=== PATIENT | male | born 1970 | race Caucasian/White ===

== ENCOUNTER 2022-03-25 12:23 | Inpatient (IN) | payer BC, SELFPAY ==
[2022-03-25] VITALS (17 sets, daily range): BP systolic 114–149; BP diastolic 50–101; PULSE 71–101; RESP 15–23; TEMP 36.3–36.8; O2SAT 18–100; BMI 42.2; BMI 42.4
--- NOTE | 2022-03-25 13:20 | CRLHL7_ITS ---
For Patients: As a result of the Cures Act, medical imaging exams and procedure reports are released immediately into your electronic medical record. You may view this report before your referring provider. If you have questions, please contact your health care provider. INDICATION: Rapid heart rate. TECHNIQUE: Chest 2 views. COMPARISON: None. FINDINGS: Lungs: Clear lungs. No consolidation. Pleura: No pleural effusion or pneumothorax. Heart and Mediastinum: The cardiomediastinal silhouette is normal. The vessels are unremarkable. Bones: Unremarkable. IMPRESSION: No acute cardiopulmonary disease. Dictated by Maximo Cheatham MD @ 03/25/2022 1:51:42 PM (Electronically Signed)
[2022-03-25 13:56] LABS: Troponin, Point-of-Care* 1.19 ng/ml (0.01-0.04)
--- NOTE | 2022-03-25 13:57 | ED.NURSE ---
ed trop 1.19, dr. ojeda updated
--- OUTSIDE RECORDS SUMMARY | 2022-03-25 13:59 | XMS_ITS | Clinical Summary ---
:1970 Author Organization [employer] [facility] [place] [address] Care Team Providers Name Role Phone Alejandro Cordova MD Primary Care Provider Allergies Active Allergy Reactions Severity Noted Date Comments Amlodipine Tachycardia Medium 03/18/2022 Cats (Fur, Dander, Saliva) Shortness Of Breath Low 011 Lisinopril Cough 11/05/2012 Metoprolol Other - Describe In Comment Medium 03/18/2022 fatigue Field Medications Medication Sig Dispensed Refills Start End Date Status Date losartan (COZAAR) 100 Take 1 90 Tablet 3 Active mg tabletIndications: Tablet (100 2 Essential mg) by mouth hypertension once daily. famotidine (PEPCID) Take 1 0 Active 20 mg Tablet (20 2 tabletIndications: mg) by mouth Gastroesophageal in the reflux disease, morning and unspecified whether 1 Tablet (20 esophagitis present, mg) in the Esophageal dysphagia evening. chlorthalidone Take 1 30 Tablet 11 Activ e (HYGROTON) 25 mg Tablet (25 2 tabletIndications: mg) by mouth Essential once daily. hypertension terazosin (HYTRIN) 2 Take 1 30 Capsule 5 Active mg Capsule (2 2 capsuleIndications: mg) by mouth Essential every hypertension morning. amLODIPine (NORVASC) Take 1 30 Tablet 5 03/18/20 Discontinued 5 mg Tablet (5 2 22 (Reorder tabletIndications: mg) by mouth (E-cancel not Essential once daily. sent)) hypertension metoprolol succinate Take 1 30 Tablet 5 03/18/20 Discontinued (TOPROL XL) 50 mg Tablet (50 2 22 ( *Allergic/Adver sustained-release mg) by mouth se Rxn/Side tabletIndications: once daily. Effects) Essential hypertension Active Problems Problem Noted Date Morbid obesity with BMI of 40.0-44.9, adult 02/13/2022 Bicuspid aortic valve 12/27/2020 Enlarged thoracic aorta 11/27/2020 Seasonal allergic rhinitis due to pollen 11/27/2020 Gastroesophageal reflux disease 11/27/2020 ALEXANDRO on CPAP 08/21/2020 Essential hypertension 07/13/2019 Bilateral carpal tunnel syndrome 12/02/2017 Flexor tendinitis of both wrists 12/02/2017 Pain in both forearms 11/11/2017 Other mixed anxiety disorders 04/16/2017 Back pain 12/15/2012 Resolved Problems Problem Noted Date Resolved Date Connective tissue disorder 07/13/2019 02/13/2022 Encounters Date Type Specialty Care Team Description 03/25/2022 Nurse Triage Alejandro Cordova Fast Heartbeat (156) MD Ron 03/18/2022 Office Visit Alejandro Cordova Blood Pressure MD Ron 03/18/2022 Travel 02/13/2022 Office Visit Richie Juarse DO Blood Pressure (Follow up on blood pre ssures. Patient brought home machine and all medications.) 02/13/2022 Travel 02/12/2022 Telephone Alejandro Cordova Blood Pressure MD Ron 02/06/2022 Office Visit Alejandro Cordova Blood Pressure MD Ron 02/06/2022 Travel 02/05/2022 Telephone Alejandro Cordova High Blood Pre ssure MD Ron 12/31/2021 Telephone Alejandro Cordova Refill Request (losartan MD Ron & metoprolol bell ccinate) 12/28/2021 Orders Only Jenny Alejandro, Imaging PA 12/27/2021 Office Visit Carlos Elizalde CV Valve Est ([facility] book, MD [facility]ll[facility] imaging, bicusp id aortic valve//PCP: Alejandro Wheeler M D//) 12/27/2021 Hospital Encounter Carlos Elizalde Pr eop examination; MD Mark Anthony Bicuspid aortic valve with ascending aorta 4.0 to 4.5 cm in diameter; Aortic valve in sufficiency, etiology of cardiac valve disease unspecified 12/27/2021 Travel from Last 3 Months Immunizations Name Administration Dates Next Due Tdap 05/08/2012 Family History Medical History Relation Name Comments Heart Disease Father Relation Name Status Comments Brother Alive Father (Age 67) heart Maternal Grandfather Maternal Grandmother Alive Mother Alive Paternal Grandfather Paternal Grandmother Alive Sister Alive Social History Tobacco Use Types Packs/Day Years Used Date Never Smoker Smokeless Tobacco: Never Used Tobacco Cessation: Counseling Given: Yes Alcohol Use Standard Drinks/Week Comments Yes 12 (1 standard drink = 0.6 oz pure alcoh ol) occasional Sex Assigned at Date Recorded Not on file COVID-19 Exposure Response Date Recorded In the last 10 days, have you been in contact with No / Unsu re 03/18/2022 7:50 AM CDT someone who was confirmed or suspected to have Coronavirus/COVID-19? Obstetrics History Last Filed Vital Signs Vital Sign Reading Time Taken Comments Blood Pressure 125/82 03/18/2022 7:59 AM CDT Pulse 96 03/18/2022 7:59 AM CDT Temperature 36.3 ??C (97.3 ??F) 09/25/2020 3:53 PM CDT Respiratory Rate 14 08/21/2018 8:37 AM CDT Oxygen Saturation 98% 03/18/2022 7:59 AM CDT Inhaled Oxygen Concentration - - Weight 145.1 kg (319 lb 14.4 oz) 03/18/2022 7:59 AM CDT Height 185.4 cm (6' 1) 12/27/2021 12:56 PM CDT Body Mass Index 42.21 12/27/2021 12:56 PM CDT Plan of Treatment Upcoming Encounters Date Type Specialty Care Team Description 04/16/2022 Office Visit Alejandro Cordova MD [facility] [address] [place], [place] [address] (Wo rk) Health Maintenance Due Date Last Done Comments COVID-19 vaccine series (#1) 1970 Hepatitis C screening for age 1205/10/1990 18-79 Influenza for age 9-49 02/07/2022 Tetanus booster 05/08/2022 05/08/2012, 05/08/2012 Depression screening for age 12+ 12/05/2022 12/05/2021, 06/2020, 11/02/2020, Additional history exists BMI (ht and wt on same day) for 12/27/2022 12/27/2021, 08/3 , age 18+ 09/25/2020, Additional history exists Lipids for age 45-75 08/21/2025 08/21/2020, 07/13/2019, 03/03/2013, Additional history exists Colonoscopy through age 75 12/31/2025 01/01/2016, 6 Tdap Completed 05/08/2012 Procedures Procedure Name Priority Date/Time Associated Diagnosis Comme nts ECHO COMPLETE WO Routine 12/27/2021 11:39 AM Preop exami nation Results for this CONTRAST CDT Bicuspid aortic procedure ar e in valve with ascending the res ults aorta 4.0 to 4.5 cm section. in diameter Aortic valve insufficiency, etiology of cardiac valve disease unspecified CTA CHEST - DUAL Routine 12/27/2021 8:27 AM Preop examin ation Results for this READ CDT Bicuspid aortic procedure ar e in valve with ascending the res ults aorta 4.0 to 4.5 cm section. in diameter Aortic valve insufficiency, etiology of cardiac valve disease unspecified from Last 3 Months Results ECHO COMPLETE WO CONTRAST (12/27/2021 11:39 AM CDT) P athologist Signature AORTIC VALVE 7 mmHg MEAN PG EJECTION 58 % FRACTION LVEDD 5.4 cm Anatomical Region Laterality Modality HEART Ultrasound Specimen (Source) Anatomical Collection Method Collection Time Re ceived Time Location / / Volume Laterality 12/27/2021 10:37 AM CDT Narrative 12/27/2021 11:52 AM CDT ECHOCARDIOGRAM EVITA [place] TUYET ? Accessi on#: ?? [id number] : ?1970 51 years Study Date: ?? 12/27/2021 10:37:49 AM Gender: M ?BP: ? 151/82 mmHg Height: 185.00 cm ?BSA: ?2.60 m? ?? Weight: 142.00 kg ?Tech: ? JMO/RS ? Referring MD: CARLOS ELIZALDE Site: ? [facility] Reading Location: [facility] Procedure: 2D, Color Doppler and Spectra l Doppler. Indication for study: Bicuspid AV, Ascen ding aorta dilation Cardiac Rhythm: Regular.Study quality: F air. Final Impressions: 1. Normal left ventricular size, mildly increased wall thickness, normal global systolic function, calculated EF of 58 %. 2. The aortic valve is bicuspid, no conner nosis and mild regurgitation. The aortic valve peak velocity is 1.8 m/s, the peak gradient is 12 mmHg, and the mean gradient is 7 mmHg. The aortic valve area is 2 .91 cm? ?? with a dimensionless index of 0.77. The stroke volume index is 43.0 ml/m? ??. 3. 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 Chamber Sizes and Function Normal left ventricular size, mildly inc reased wall thickness, normal global systolic function, calculated EF of 58 %. Left atrial size is normal. Right ventricular cavity size is normal, global systoli c RV function is normal. RV wall thickne ss is normal. The right atrium is normal. Right atrial volume index is 15 ml/m? ??. Right atrial area is 17 cm? ??. The pulmonary artery is of normal size and tomi gin. The sinus of Valsalva is normal siz ed. The ascending aorta is dilated. Valves, RV Pressures and Diastolic Funct ion The aortic valve is bicuspid, no stenosi s and mild regurgitation. The mitral valve is normal in structure, trace mitral regurgitation. Normal diastolic function for age. The tricuspid valve is normal in structure. Tricuspid regurgitation is r egurgitation is not evident. The pulmonic valve is normal. No pulmonary regurgitation. Masses, Effusion, Shunts There is no pericardial effusion. The in ferior vena cava is not well visualized, respiratory size variation not well visualized. No left to right shunting was detected by limited color flow Doppler interrogation of the interatrial septum. MEASUREMENTS AND CALCULATIONS 2-D Measurements and LV Function: LVID (d) 5.4 cm Planimetered EF 58 % LVID (s) 3.2 cm LV FS% (2D) ? 41 % IVS (d) ??1.4 cm LVOT diameter ?? 2.2 cm LVPW (d) 1.1 cm HR ?6 1 bpm Ao Sinus 3.5 cm LA Vol index ?33 ml/ m2 Asc Ao ?? 4.5 cm RA Vol index ?15 ml /m2 LA ? 4.7 cm RA area ? 1 7 cm? ?? Diastology: Mitral ?Tissue Doppler ?Pulmonary veins E Peak 1.0 m/s ??e', Septum ? 0.09 m /s Pulm s ?55.3 cm/s A Peak 0.9 m/s ??e', Lateral ?0.12 m /s Pulm d ?38.1 cm/s E/A ?1.2 ?E/e' Average ?? 9.4 1 ? Pulm s/d ratio ??1.45 DT ? 210 msec Aortic Valve: Vmax ? 1.8 m/s ??FLACO (V) ?? 2.67 cm? ?? VTI ?0.38 m ?? FLACO (I) ?? 2.91 cm? ?? LVOT V max 1.2 m/s ??Max PG ?12 mmHg LVOT VTI ?? 0.29 m ?? Mean PG ?? 7 mmHg SV ? 112 ml ?? Dim Index 0.77 SV index ?? 43 ml/m? ?? CO ?6.8 l/min ?CI ?2.6 l/min/m? ?? Mitral Valve: MVA ?3.6 cm? ?? MV P 1/2 61 msec Tricuspid Valve and estimated PA pressur es: TAPSE 2.2 cm Pulmonic Valve: PV Vmax 0.9 m/s PV AT ?? 100 msec . This study was interpreted by an [facility]. ??Final ?? Procedure Note Chino Wade MD - 12/27/2021Fo rmatting of this note might be different from the original. ECHOCARDIOGRAM EVITA BENZ : 1970 51 years Study Date: 12/27 10:37:49 AM Gender: M BP: 151/82 mmHg Height: 185.00 cm BSA: 2.60 m? ?? Weight: 142.00 kg Tech: RANDAL/RS Referring MD: CARLOS ELIZALDE Site: [facility] Reading Location: [facility] Procedure: 2D, Color Doppler and Spectra l Doppler. Indication for study: Bicuspid AV, Ascen ding aorta dilation Cardiac Rhythm: Regular.Study quality: F air. Final Impressions: 1. Normal left ventricular size, mildly increased wall thickness, normal global systolic function, calculated EF of 58 %. 2. The aortic valve is bicuspid, no conner nosis and mild regurgitation. The aortic valve peak velocity is 1.8 m/s, the peak gradient is 12 mmHg, and the mean gradient is 7 mmHg. The aortic valve area is 2.91 cm? ?? with a dimensionless index of 0.77. The stroke volume index is 43.0 ml/m? ??. 3. 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 Chamber Sizes and Function Normal left ventricular size, mildly inc reased wall thickness, normal global systolic function, calculated EF of 58 %. Left atrial size is normal. Right ventricular cavity size is normal, global systolic RV function is normal. RV wall thickness is normal. The right atrium is normal. Right atrial volume index is 15 ml/m? ??. Right atrial area is 17 cm? ??. The pulmonary artery is of normal size and origin. The sinus of Valsalva is normal sized. The ascending aorta is dilated. Valves, RV Pressures and Diastolic Funct ion The aortic valve is bicuspid, no stenosi s and mild regurgitation. The mitral valve is normal in structure, trace mitral regurgitation. Normal diastolic function for age. The tricuspid valve is normal in structure. Tricuspid regurgitation is regurgitation is not evident. The pulmonic valve is normal. No pulmonary regurgitation. Masses, Effusion, Shunts There is no pericardial effusion. The in ferior vena cava is not well visualized, respiratory size variation not well visualized. No left to right shunting was detected by limited color flow Doppler interrogation of the interatrial septum. MEASUREMENTS AND CALCULATIONS 2-D Measurements and LV Function: LVID (d) 5.4 cm Planimetered EF 58 % LVID (s) 3.2 cm LV FS% (2D) 41 % IVS (d) 1.4 cm LVOT diameter 2.2 cm LVPW (d) 1.1 cm HR 61 bpm Ao Sinus 3.5 cm LA Vol index 33 ml/m2 Asc Ao 4.5 cm RA Vol index 15 ml/m2 LA 4.7 cm RA area 17 cm? ?? Diastology: Mitral Tissue Doppler Pulmonary veins E Peak 1.0 m/s e', Septum 0.09 m/s Pulm s 55.3 cm/s A Peak 0.9 m/s e', Lateral 0.12 m/s Pulm d 38.1 cm/s E/A 1.2 E/e' Average 9.41 Pulm s/d ratio 1.45 DT 210 msec Aortic Valve: Vmax 1.8 m/s FLACO (V) 2.67 cm? ?? VTI 0.38 m FLACO (I) 2.91 cm? ?? LVOT V max 1.2 m/s Max PG 12 mmHg LVOT VTI 0.29 m Mean PG 7 mmHg SV 112 ml Dim Index 0.77 SV index 43 ml/m? ?? CO 6.8 l/min CI 2.6 l/min/m? ?? Mitral Valve: MVA 3.6 cm? ?? MV P 1/2 61 msec Tricuspid Valve and estimated PA pressur es: TAPSE 2.2 cm Pulmonic Valve: PV Vmax 0.9 m/s PV AT 100 msec . This study was interpreted by an [facility]. Final Carlos Elizalde MD ECHO ORD CTA CHEST - DUAL READ (12/27/2021 8:27 AM CDT) Anatomical Region Laterality Modality CHEST Computed Tomography Specimen (Source) Anatomical Location Collection Method / Collectio n Time Received Time / Laterality Volume Impressions 12/28/2021 2:52 PM CDT ?? 1. ??Moderate ascending aortic enlargeme nt 45 x 44 mm. ??Ascending aortic index 8.5 cm2/m. ?A. ??Bicuspid aortic valve with ca lcification and sclerosis. ?B. ??No evidence for coarctation o f the aorta. ?C. ??Normal aortic arch vessel ruby cris. 2. ??Coronary arterial calcification. ?? Please see comments. 3. ??Please see separate radiology repor t for review of noncardiovascular structures. MD NANCY Gaytan/rigo ?? For Patients: As a result of the ntury Cures Act, medical imaging exams and procedure reports are released immediately into your electronic medical record. ??You may view this repo rt before your referring provider. ?? If you have questions, please contact [facility] care provider. OVER-READ ? OVER-READ ? OVER-READ OVER-READ: DETAILED RADIOLOGY EXTRACARDI AC OVER-READ OF CARDIAC CT 12/27/2021 CLINICAL HISTORY: Bicuspid aortic valve. Cardiac over-read . TECHNIQUE: Please refer to separately dictated repo rt for details of technique. ??100 cc Omnipaque 350. This exam is being performed in conjunct ion with the services provided by the [facility]. Heart [place] (I). FINDINGS: Chest: Visualized thyroid is symmetric. No sign ificant axillary, mediastinal, or hilar lymphadenopathy. Main pulmonary ar josefina is normal in caliber. No focal airspace opacities or pleural effu sions. Upper Abdomen: No acute pathology. Musculoskeletal: Visualized osseous structures demonstrat e mild degenerative changes in the spine. IMPRESSION: 1. No acute nonvascular pathology in the chest. 2. Please refer to separately dictated r eport for evaluation of cardiovascular structures. Please note that [facility] use dose modulation, iterative reconstruction, and/or weight- based dosing when appropriate to reduce radiation dose to as low as reaso nably achievable. Dictated by Elmer Cortez MD @ 12/27/2021 3: 49:07 PM Signed by: Elmer Cortez MD @12/27/2021 3:49 :07 PM Narrative 12/28/2021 2:52 PM CDT Results are automatically released to your [employer] account once available, in compliance with matthew al regulations. ??This means that you may see your results before your pro vider has had a chance to review them. ??Please allow 2-3 business days f or your provider to comment on the results. STUDY: ??CTA OF THE CHEST, 12/27/2021 STUDY PARAMETERS: ??Contrast used: Omnip aque 350, 100 cc; no premedications given; scan protocol FLASH; total radiat ion dose 4 mSv; Siemens SOMATOM Force [address] INDICATIONS: ??Aortic insufficiency, bic uspid aortic valve, ascending aortic enlargement. RISK FACTORS: ??Diabetes: ??No. ??Tobacc o use: ??Never. SCAN QUALITY: Good. FINDINGS: ASCENDING AORTA: ??The ascending aorta i s 44 x 45 mm, the maximal dimension in the mid ascending portion. ??The area of 1522 mm2 indexes to 8.5 cm2/m. ADDITIONAL FINDINGS: ??The recent Fall c oronary CTA showed nonobstructive coronary artery disease. Coronary arteri al calcification is again visualized on the scan. ??However, the s can is not intended for coronary artery assessment. ??The aortic valve is anatomically bileaflet with thickening and calcification noted. 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 [id number] 2017-Prese [phone] [address] [place] [address] [employer]UE [employer] BL[employer] OF [id number] 2021-Prese [address] [address] [place] [address] Evita Benz Workers Comp Self 1970 [address] (Home) [place] [id number] BMI [employer] Employer 01/19/[address] (Work) [place] [address] [employer] 06/09/[id number] [place] , ([place]) [place] [address] [employer] 06/09/[address] (Home) [place] [address] Care 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
--- OUTSIDE RECORDS SUMMARY | 2022-03-25 13:59 | XMS_ITS | Encounter Summary ---
:1970 Author Organization [facility] Address [address] [place] [address] Care Team Providers Name Role Phone Unavailable Primary Care Provider Unavailable Reason for Visit Reason Onset Date Comments Testing For Upper Respiratory Virus Symptoms 04/18/2021 Encounter Details Date Type Department Care Team Description 04/18/2021 External Outreach Department of Family Souleymanestanislaw Rj Contact With And (Suspected) Exposure To COVID-19; MedicineSachin D.O. Infection Upper Respiratory [facility], in [address] [place], [place] [address] [facility] [address] [place], [place] [phone] [address] (Work) [phone] Social History Tobacco Use Types Packs/Day Years Used Date Smoking Tobacco: Never Assessed Sex Assigned at Date Recorded Not on file documented as of 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 Progress Notes Shanita Funez - 04/18/2021 1:27 PM CST Encounter created for symptomatic infectious disease screening with possible COVID, Influenza, RSV, and/or Group A Strep testing. LE SCHOOL TECHNOLOGY TEACHER documented in 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 Miscellaneous Notes Result Encounter Note - Suha Tovar R.N. - 04/19/2021 8:47 AM MIDDLE SCHOOL TECHNOLOGY TEACHER The patient will be contacted if they are eligible for Monoclonal Antibody Infusion (MASS 1 or greater) and/or Remote Patient Monitoring (MASS 3 or greater). The [facility] ([facility]) sends general guidance about COVID-19 to all patients by letter or portal, except when a patient is hospitalized or resides in a half-way. [facility] will call all adult patients at highest risk for severe complications of COVID-19 (MASS 3 or greater), those without an online services account, and those who require an stick puller. Any patient with a MASS score 1 or greater or a COVID-19 score 1 or greater may be at higher risk ofsevere disease. These patients will follow up directly with primary care. The primary care team willdecide if the patient needs a phone call or a follow up portal message to assess symptom severity, provide individualized guidance on symptom monitoring or symptom management, or to reinforce when to se ek care. [facility] encourages patients to follow up with their PCP with questions, worsening symptoms, or for symptom management. For questions, contact the [facility] ([facility]): Pager: [phone] In basket: P RST/[facility] COVID-19 POSITIVE Covid Care e-consult Components of the Monoclonal Antibody Selection Score (MASS) Compromised Immune System/Transplant = 4 points Chronic Kidney Disease on Dialysis = 4 points Age greater than or equal to 55 and chronic pulmonary disease = 3 points Age greater than or equal to 65 = 2 points Age greater than or equal to = 2 points Diabetes = 2 points Age greater than or equal to 55 AND cardiovascular disease = 2 points Age greater than or equal to 55 and hypertension = 1 point NOTE: At the time of testing, patients are instructed to obtain the result by calling the [employer] result line or by checking the online services account. LE SCHOOL TECHNOLOGY TEACHER documented in 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 Plan of Treatment Not on filedocumented as of 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 Procedures Procedure Name Priority Date/Time Associated Diagnosis Comme nts INFLUENZA A/B AND Routine 04/18/2021 2:00 PM Infection Upper R esults for this RSV, PCR, VARIES MIDDLE SCHOOL TECHNOLOGY TEACHER Respiratory procedure a re in the results section. SARS CORONAVIRUS-2 Routine 04/18/2021 2:00 PM Contact With And Results for this RNA, V MIDDLE SCHOOL TECHNOLOGY TEACHER (Suspected) Exposure procedu re are in To COVID-19 the results section. documented in 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 Results Influenza A/B and RSV, PCR, Varies (04/18/2021 2:00 PM MIDDLE SCHOOL TECHNOLOGY TEACHER) [facility] Method Time Signature Influenza A/B Swab, 04/19/2021 [facility]TL and RSV, Nasopharynx 3:24 PM MIDDLE SCHOOL TECHNOLOGY TEACHER Source Influenza A, Undetected Undetected 04/19/2021 DTL PCR 3:24 PM MIDDLE SCHOOL TECHNOLOGY TEACHER Comment: Influenza A RNA absent. Influenza B, PCR Undetected Undetected 04/19/2021 3:24 PM CS T DTL Comment: Influenza B RNA absent. Respiratory Syncytial Virus, PCR Undetected Undetected 04/2021 3:24 PM MIDDLE SCHOOL TECHNOLOGY TEACHER DTL Comment: RSV RNA absent. ----ADDITIONAL INFORMATION---- This test has been modified from the man ufacturer's instructions. Its performance characteristics were determi alecia by [facility] in a manner consistent with CLIA requirements. This test has not been cleared or approved by the U.S. Food and Drug Administration . Specimen Anatomical Collection Method Collection Time Receive d Time (Source) Location / / Volume Laterality Varies 04/18/2021 2:00 PM 7:40 (Nasopharynx) MIDDLE SCHOOL TECHNOLOGY TEACHER AM MIDDLE SCHOOL TECHNOLOGY TEACHER Rj Perdomo D.O. LAB MICROBIOLOGY - GENERAL O RDERABLES Performing Organization Address City/State/ZIP Code Phon e Number [facility] - [address] [place], [place] [address] [facility] [place] [address] Laboratories-[facility] [address] (ABNORMAL) SARS Coronavirus-2 RNA, V Symptomatic (04/18/2021 2:00 PM MIDDLE SCHOOL TECHNOLOGY TEACHER) [facility] Method Time Signature SARS-CoV-2 Swab, 04/19/2021 [facility] Specimen Nasopharynx 3:10 AM MIDDLE SCHOOL TECHNOLOGY TEACHER Source SARS CoV-2 Detected (A) Undetected 04/19/2021 [facility]TO RNA, TMA 3:10 AM MIDDLE SCHOOL TECHNOLOGY TEACHER Comment: SARS-CoV-2 RNA present. ----ADDITIONAL INFORMATION---- This molecular amplification test was pe rformed using the Aptima SARS-CoV-2 assay ([employer] on the [employer] tem under emergency use authorization (EUA) by the U.S. Food and Drug Administ ration. Fact sheets for this EUA assay can be fo und at the following links: For Healthcare Providers: https://www.fd a.gov/media/993414/download For Patients: https://www.fda.gov/media/ 027121/download Specimen Anatomical Collection Method Collection Time Receive d Time (Source) Location / / Volume Laterality Varies 04/18/2021 2:00 PM 7:24 (Nasopharynx) MIDDLE SCHOOL TECHNOLOGY TEACHER PM MIDDLE SCHOOL TECHNOLOGY TEACHER Rj Perdomo D.O. LAB MICROBIOLOGY - GENERAL O RDERABLES Performing Organization Address City/State/ZIP Code Phon e Number [facility]- [address] [place] [address] [place] [address] System in [place] [address] [place] [address] documented in 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 Visit Diagnoses Diagnosis Contact With And (Suspected) Exposure To COVID-19 Infection Upper Respiratory documented in 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 Additional Health Concerns Infection Onset Date Last Indicated Resolved Time COVID19 Pending 04/18/2021 04/18/2021 04/19/2021 3:11 AM MIDDLE SCHOOL TECHNOLOGY TEACHER documented as of 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
--- OUTSIDE RECORDS SUMMARY | 2022-03-25 13:59 | XMS_ITS | Clinical Summary ---
:1970 Author Organization [facility] Address [address] [place] [address] Care Team Providers Name Role Phone Unavailable Primary Care Provider Unavailable Source Comments Patient records contain information from all sites at [facility]. For routine questions regarding patient records, call [phone] during business hours, M-F 8:00 AM - 5:00 PM Central Time. Record requests for emergency care only can be directed to [phone] at any time.[facility] Social History Tobacco Use Types Packs/Day Years Used Date Smoking Tobacco: Never Assessed Sex Assigned at Date Recorded Not on file Plan of Treatment Health Maintenance Due Date Last Done Comments CT Colonography 1970 Cologuard 1970 Colonoscopy 1970 Colorectal Cancer Screening 1970 FIT 1970 HIV Screening 1970 Hepatitis B Vaccines (1 of 3 1972 - 3-dose series) Hepatitis C Screening 1970 COVID-19 Vaccine (#1) 1970 Depression Screening (Annual 06/09/2021 PHQ-2) Influenza Vaccine (#1) 2022 DTaP,Tdap,and Td Vaccines (2 05/08/2022 05/08/2012 - Td or Tdap) Fasting Glucose for Diabetes 02/06/2024 02/05/2021, Screening 07/13/2019 Lipid (Cholesterol) Screening 08/21/2025 08/21/2020, 07/13/2019 Pneumococcal vaccine (0-64 Aged Out No lo nger eligible based years) on patient's age to complete this to [facility] Insurance Payer Benefit Plan / Subscriber ID Effective Dates Phone Addre ss Type Group [place] [id number]-Gavi [phone] [address] [facility] [address] [place] [address]
--- OUTSIDE RECORDS SUMMARY | 2022-03-25 13:59 | XMS_ITS | Encounter Summary ---
:1970 Author Organization [facility] Address [address] [place] [address] Care Team Providers Name Role Phone Unavailable Primary Care Provider Unavailable Encounter Details Date Type Department Care Team Description 02/03/2017 Hospital Encounter HX [facility] OCCUP MED García Sellers M.D. [address] [address] (Wo rk) Social History Tobacco Use Types Packs/Day Years Used Date Smoking Tobacco: Never Assessed Sex Assigned at Date Recorded Not on file documented as of 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 Plan of Treatment Not on filedocumented as of 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 Visit Diagnoses Not on filedocumented in 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
--- OUTSIDE RECORDS SUMMARY | 2022-03-25 13:59 | XMS_ITS | Encounter Summary ---
:1970 Author Organization [facility] Address [address] [place] [address] Care Team Providers Name Role Phone Unavailable Primary Care Provider Unavailable Encounter Details Date Type Department Care Team Description 04/18/2021 Admin Visit Department of Family Medicine, [address] [address] [facility] [phone] Social History Tobacco Use Types Packs/Day Years Used Date Smoking Tobacco: Never Assessed Sex Assigned at Date Recorded Not on file documented as of 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 Plan of Treatment Not on filedocumented as of 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 Visit Diagnoses Not on filedocumented in 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 Additional Health Concerns Infection Onset Date Last Indicated Resolved Time COVID19 Pending 04/18/2021 04/18/2021 04/19/2021 3:11 AM GLOVE MACHINE OPERATOR documented as of 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
--- OUTSIDE RECORDS SUMMARY | 2022-03-25 13:59 | XMS_ITS | Encounter Summary ---
:1970 Author Organization [facility] Address [address] [place] [address] Care Team Providers Name Role Phone Unavailable Primary Care Provider Unavailable Reason for Visit Reason Comments COVJOSE G Nurse Line Encounter Details Date Type Department Care Team Description 04/18/2021 Clinical Communication Division of Amanda Kennedy COVI D Nurse [facility] [phone] [place], in (Work) [place], [place] [address] [place] [address] Social History Tobacco Use Types Packs/Day Years Used Date Smoking Tobacco: Never Assessed Sex Assigned at Date Recorded Not on file documented as of 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 Miscellaneous Notes Telephone Encounter - Amanda Kennedy R.N. - 04/18/2021 12:57 PM CST COVID-19 Nurse Line Screening ASSESSMENT Initial Screening Pathway Select appropriate pathway: : Adult In the last 48 hours, have you had a fever* OR symptoms that are unrelated to a preexisting illness?: Fever,New cough,New sore throat,New diarrhea,New muscle aches,New chills,New repeated shaking with chills COVID Symptomatic Screening Do you have any of the following urgent symptoms?: No urgent symptoms noted (Continue Screening) Have you received a COVID-19 vaccine in the last 72 hours? : No vaccine received (Continue Screening) Have you had close contact* with a person who has a LABORATORY CONFIRMED case of COVID-19 in the past 14 days?: No (Continue Screening) Have you tested positive for COVID-19 in the last 45 days?: No. COVID-19 testing is indicated (Continue Screening for Additional Testing) Additional Screening for Influenza, RSV and Strep Select appropriate region: : [place] Do you have any of the following respiratory syntonical virus (RSV) complications? : No complications noted (Continue Screening) Do you have any of the following high risk influenza criteria?: Body Mass Index (BMI) 40 or greater or unsure* Are all of the following Strep criteria met? : Age is between 18-75 years,No, all criteria are not met. Influenza testing is indicated. (End Screening) Symptom Onset Date of symptom onset: 04/16/21 Testing Recommendation Endpoint Is testing recommended? : Recommended to test Further Triage Needs Any further triage needs? : No further concerns noted. PLAN Endpoint recommendation: Symptomatic testing indicated, advised to be swabbed for COVID-19 and Influenza, sent to [facility] located at [address] [place] [address] ([facility]). An appointment is required for testing, please call [phone] Friday-Friday 7am to 6pm and Friday & Friday 9am to 4pm to schedule an appointment. Testing hours are 8am - 4:30pm daily. You can also schedule via your Patient Online Services account., Please avoid using public transportation per CDC recommendation. If you do not have personal transportation please self-quarantine until a personal transportation option is available. Standard Care Points -Get a COVID -19 vaccine as soon as you can if not fully vaccinated. -Wash hands frequently with soap and water, use hand production manufacturing worker if soap and water aren't available. -Wear a mask over your nose and mouth to help protect yourself and others if not fully vaccinated and having no symptoms -Stay 6 feet between yourself and others who don't live with you. -Avoid crowds and poorly ventilated indoor spaces. -Seek emergent care if any of the following occur Trouble breathing Bluish lips or face Persistent pain or pressure in the chest New confusion or inability to rouse. -Notify your regular care provider of any new or worsening symptoms. Symptomatic Carepoints: Stay home and separate yourself from others and stay in a specific sick room if able. Avoid sharing personal or household items. Rest. Hydrate. Take Acetaminophen/Ibuprofen asneeded to control fever and muscles aches. Use over the counter medications as needed for other symptoms. Gargle with 8 ounces of warm salt water several times a day for throat discomfort (1/4 tsp regular salt to 8 ounces or 1 cup warm water). Do not swallow the salt water. Throat lozenges will help keep the throat lubricated. Hard candy, lollipops, and throat lozenges are equally effective. Use a humidifier. If you have received a negative COVID-19 test result and continue to have new or worsening symptoms after 72 hours please call the COVID Nurse Line to assess if you need repeat testing or reach out to your Primary Care Provider for guidance. Education: Patient/caregiver able to teach back Patient agreeable to plan of care: Yes The following references were used: [facility] novel coronavirus (COVID- 19) resources Nursing judgement SPLANT RN documented in 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 Plan of Treatment Not on filedocumented as of 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 Visit Diagnoses Not on filedocumented in 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
[2022-03-25 14:01] LABS: Basophils Absolute Auto 0.02 K/uL (0.00-0.30); Basophils Percent Auto 0.3 % (0.0-3.0); Eosinophils Absolute Auto 0.17 K/uL (0.00-0.50); Eosinophils Percent Auto 2.6 % (0.0-7.0); Hematocrit 41.9 % (37.0-53.0); Immature Granulocytes Abs Auto 0.01 K/uL (0.00-0.30); Lymphocytes Absolute Auto 1.78 K/uL (0.90-2.90); Lymphocytes Percent Auto 27.1 % (20-44); Mean Corpuscular HGB Conc 33 gm/dL (32-36); Mean Corpuscular Hemoglobin 28 pg (26-34); Mean Corpuscular Volume 85 fL (80-100); Monocytes Percent Auto 6.4 % (0.0-11.0); Neutrophils Absolute Auto 4.16 K/uL (1.7-7.0); Neutrophils Percent Auto 63.4 % (42.0-72.0); Platelet Count* 221 K/uL (140-440); RDW Coefficient of Variation % 12.4 % (11.5-15.5); Red Blood Count 4.96 m/uL (4.30-5.90); White Blood Count* 6.56 K/uL (4.50-11.00)
[2022-03-25 14:06] LABS: Slide Review Reflex No
[2022-03-25 14:15] LABS: Chloride* 98 mmol/L (96-114); Potassium* 3.9 mmol/L (3.6-5.1); Sodium* 134 mmol/L (135-149)
[2022-03-25 14:17] LABS: Prothrombin Time 13.6 Seconds
[2022-03-25 14:18] LABS: Creatinine* 0.9 mg/dL (0.5-1.5); Est. Creatinine Clearance* 112.21; Estimated Glomerular Filt Rate 105 ml/min; Partial Thromboplastin Time* 30 Seconds (23-33)
--- NOTE | 2022-03-25 14:18 | CRLHL7_ITS ---
For Patients: As a result of the 21st Century Cures Act, medical imaging exams and procedure reports are released immediately into your electronic medical record. You may view this report before your referring provider. If you have questions, please contact your health care provider. INDICATION: Chest pain, palpitations. TECHNIQUE: CT chest without contrast and CT chest, abdomen, and pelvis acquired with 150 mL of Isovue 370 IV contrast, dissection protocol. Coronal and sagittal reformats were generated. COMPARISON: CT chest, abdomen, and pelvis from 11/07/2020. FINDINGS: CHEST: Thyroid: Unremarkable. Thoracic lymph nodes: No enlarged supraclavicular, mediastinal, hilar, or axillary lymph nodes. Mediastinum and esophagus: Unremarkable. Heart and vasculature: The unenhanced images demonstrate no evidence of aortic intramural hematoma. The entire aorta is normal in caliber. No aneurysm or dissection. The heart size is normal. Lungs: Unremarkable. Pleura: Unremarkable. Chest wall: Incidentally noted bilateral gynecomastia. ABDOMEN AND PELVIS: Liver: Unremarkable. Gallbladder and bile ducts: Unremarkable. No stones or inflammation. No biliary dilation. Spleen: Unremarkable. Pancreas: Unremarkable. Adrenal glands: Unremarkable. No nodules. Kidneys and Ureters: Unremarkable. No suspicious masses, stones, or hydronephrosis. Lymph Nodes and Retroperitoneum: Unremarkable. Vasculature: The abdominal aorta is normal in caliber without aneurysmal dilation or dissection. Conventional hepatic arterial anatomy. Patent SMA and single bilateral renal arteries arising from the abdominal aorta. The NANCY is patent. Both common iliac arteries are normal in caliber. GI tract: Unremarkable. Normal in caliber. The appendix is normal. Peritoneum/Abdominal Wall: Unremarkable. No mass or infiltration. No free air or free fluid. Pelvic Viscera: Unremarkable. Calcifications in the prostate have a benign appearance. Bladder: Unremarkable. Bones: Unremarkable for age. Partially visualized right femoral intramedullary sanaz. IMPRESSION: 1. Normal caliber of the entire aorta, without aneurysm or dissection. 2. No significant CT abnormality in the chest, abdomen, or pelvis or findings to explain the cause of the patient`s symptoms. Please note that all CT scans at this facility use dose modulation, iterative reconstruction, and/or weight-based dosing when appropriate to reduce radiation dose to as low as reasonably achievable. Dictated by Maximo Cheatham MD @ 03/25/2022 3:41:16 PM (Electronically Signed)
[2022-03-25 14:19] LABS: Blood Urea Nitrogen* 22 mg/dL (5-24); Calcium* 9.9 mg/dL (8.4-10.6); Carbon Dioxide* 27 mmol/L (20-32); Glucose* 110 mg/dL (60-115)
[2022-03-25 14:20] LABS: D Dimer Quantitative* 0.29 ug/ml (0.00-0.50)
[2022-03-25 14:27] LABS: NT Pro B Type NatriureticPept* 263 PG/mL (0-125)
[2022-03-25 14:28] LABS: C Reactive Protein* < 0.5 mg/dL (0.5-1.0)
[2022-03-25 14:37] LABS: PCR FLU A Negative PCR FLU A (Negative); PCR FLU B Negative PCR FLU B (Negative); PCR RSV Negative PCR RSV (Negative)
[2022-03-25 14:39] LABS: SARS PCR* Negative SARS-CoV-2 (Negative)
--- NOTE | 2022-03-25 14:47 | ED_ITS ---
HPI - General Adult General Date Seen: 03/25/22 Chief complaint: Dizziness/Vertigo Stated complaint: Rapid heart rate 150/low BP yesterday Time Seen by Provider: 03/25/22 13:02 Source: patient and family Mode of arrival: ambulatory Limitations: no limitations History of Present Illness HPI narrative: Patient is a 51-year-old gentleman who is seen in room 4 for evaluation of a rapid heart rate that occurred yesterday. In the mid afternoon time. He had a heart rate of 150 as from his blood pressure cuff. At the same time he had chest pressure with radiation to bilaterally to his neck. This lasted for few hours then slowly abated, he did not take any medications for this, denies any radiation to his back, or his arm. 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 I have actually seen him once before here, because of that, 2020 he had a normal stress test of 10 minutes on the Bear protocol. Cardiac risk factors include a history of hypertension, hyperlipidemia, and the aforementioned enlarged aorta. He did have a CT scan say within the last 6 months, that was no change. Currently patient is entirely pain-free. Relieving factors: none Exacerbating factors: none Associated symptoms: denies other symptoms Treatments prior to arrival: none Related Data Home Medications Medication Instructions Recorded Confirmed amlodipine 5 mg tablet 5 mg PO DAILY 03/25/22 03/25/22 chlorthalidone 25 mg tablet 25 mg PO .daily 03/25/22 03/25/22 losartan 100 mg tablet 100 mg PO DAILY 03/25/22 03/25/22 omeprazole 40 mg capsule,delayed 40 mg PO DAILY 03/25/22 03/25/22 release terazosin 2 mg capsule 2 mg PO DAILY 03/25/22 03/25/22 Allergies Allergy/AdvReac Type Severity Reaction Status Date / Time cat dander Allergy Intermediate Verified 03/25/22 18:27 lisinopril AdvReac Intermediate Verified 03/25/22 18:27 Review of Systems Status of ROS: Reports: 10 or more systems reviewed and unremarkable except as noted in History and below [facility] Medical History (Updated 03/25/22 @ 20:27 by Elijah Kenney MD) Bicuspid aortic valve Essential hypertension Sleep apnea Family History (Updated 03/25/22 @ 18:01 by Jessica Gonsales RN) Father Heart attack Diabetes Social History Highest level of school completed/degree received: high school graduate Smoking Status: Never smoker Do you use any of these nicotine containing products: None Second hand tobacco smoke exposure: No How often do you have a drink containing alcohol: never AUDIT-C Alcohol total score: 0 Non-prescribed substance use: denies use Caffeine: Yes (Diet [employer] [place]) service: No Exam Narrative: Exam Narrative: Patient is seen in room 4 no apparent distress, heart rate is 90 on the monitor, pleasant alert. Pupils equal round reactive to light there is no scleral icterus redness TMs are normal oropharynx normal neck is supple full range of motion chest is clear bilaterally no wheezing crackles noted heart sounds are normal. S1-S2 is normal, there is no S3-S4 clicks murmurs or gallops, abdomen is soft and obese there is no guarding no past splenomegaly moves all extremities independently well, with no edema. Skin reveals no petechiae or rashes, neurologically intact. Const: Vital Signs, click to edit/add: Vital Signs - 24 hr 03/25/22 12:39 03/25/22 14:37 03/25/22 14:20 Temperature 97.4 F L Pulse Rate [Pulse Oximeter] 101 H 81 73 Respiratory Rate 16 Blood Pressure [Ri ght Upper Arm] 118/84 138/91 H Pulse Oximetry 99 96 96 Oxygen Delivery Me thod Room Air Room Air Room Air 03/25/22 14:00 03/25/22 13:40 03/25/22 13:20 Temperature Pulse Rate [Pulse Oximeter] 74 87 89 Respiratory Rate Blood Pressure [Ri ght Upper Arm] 117/90 H 122/77 114/71 Pulse Oximetry 96 18 L Oxygen Delivery Me thod Room Air Room Air Room Air 03/25/22 13:00 03/25/22 15:08 03/25/22 15:30 Temperature Pulse Rate [Pulse Oximeter] 94 77 73 Respiratory Rate 23 15 Blood Pressure [Ri ght Upper Arm] 127/77 146/89 H 140/87 H Pulse Oximetry 100 99 Oxygen Delivery Me thod Room Air Room Air Room Air 03/25/22 16:00 03/25/22 16:30 Temperature Pulse Rate [Pulse Oximeter] 71 82 Respiratory Rate 17 18 Blood Pressure [Ri ght Upper Arm] 122/76 143/50 H Pulse Oximetry 93 Oxygen Delivery Me thod Room Air Room Air Documenting provider has reviewed patient's vital signs: yes Course Consultations Consultation #1: Dewayne Myers MD cardiology at [facility] I discussed the case with Dr. Myers he recommended repeating the aortogram, given his past history, repeating the troponin, and then going forward at that point. Patient is pain- free, at this point. Time: 02:20 Vital Signs Vital signs: Initial Vital Signs Temperature 97.4 F L 03/25/22 12:39 Temperature Source Temporal Artery Scan 03/25/22 12:39 Pulse Rate 101 H 03/25/22 12:39 Pulse Rhythm 03/25/22 12:39 Pulse Strength 3+ Normal 03/25/22 12:39 Respiratory Rate 16 03/25/22 12:39 Blood Pressure 118/84 03/25/22 12:39 Blood Pressure Mean 95 03/25/22 12:39 Blood Pressure Position Sitting 03/25/22 12:39 Pulse Oximetry 99 03/25/22 12:39 Oxygen Delivery Method 03/25/22 12:39 Vital Signs Temperature 97.4 F L 03/25/22 12:39 Pulse Rate 101 H 03/25/22 12:39 Respiratory Rate 16 03/25/22 12:39 Blood Pressure 118/84 03/25/22 12:39 Pulse Oximetry 99 03/25/22 12:39 Oxygen Delivery Method 03/25/22 12:39 Temperature 98.3 F 03/25/22 19:00 Pulse Rate 92 03/25/22 19:08 Respiratory Rate 18 03/25/22 19:00 Blood Pressure 144/84 H 03/25/22 19:00 Pulse Oximetry 95 03/25/22 19:00 Oxygen Delivery Method 03/25/22 19:00 Medical Decision Making MDM Narrative Medical decision making narrative: During the evaluation of this patient I considered multiple differential diagnosis is. The life-threatening differential diagnosis include coronary disease/TN, pulmonary embolism, pneumothorax, pneumonia, and aortic dissection. Other differential diagnosis included but were not limited to pericarditis, myocarditis, chest wall pain, GERD, esophageal rupture, rib fracture contusion, pleurisy, as well as other etiologies. 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 He thinks the likely cause is a demand situation ischemia, likely from the arrhythmia that the patient describes from earlier yesterday I talked to the inpatient hospitalist, who accepted him. Medical Records Medical records reviewed: Yes I reviewed the patient's medical records Lab Data Lab results reviewed: Yes I reviewed the patient's lab results Labs: Lab Results 03/25/22 03/25/22 03/25/22 Range/Units 13:21 13:40 13:40 WBC 6.56 (4.50-11.00) K/uL RBC 4.96 (4.30-5.90) m/uL Hgb 14.0 (13.5-17.5) gm/dL Hct 41.9 (37.0-53.0) % MCV 85 (80-100) fL MCH 28 (26-34) pg MCHC 33 (32-36) gm/dL RDW Coeff of [place] 12.4 (11.5-15.5) % Plt Count 221 (140-440) K/uL Neut % (Auto) 63.4 (42.0-72.0) % Lymph % (Auto) 27.1 (20-44) % [place] % (Auto) 6.4 (0.0-11.0) % Eos % (Auto) 2.6 (0.0-7.0) % Baso % (Auto) 0.3 (0.0-3.0) % Neut # (Auto) 4.16 (1.7-7.0) K/uL Lymph # (Auto) 1.78 (0.90-2.90) K/uL [place] # (Auto) 0.40 (0.00-0.90) K/UL Eos # (Auto) 0.17 (0.00-0.50) K/uL Baso # (Auto) 0.02 (0.00-0.30) K/uL Abs Immat Gran (auto) 0.01 (0.00-0.30) K/uL INR (0.91-1.10) APTT (23-33) Seconds D-Dimer Quant (PE/DVT) (0.00-0.50) ug/ml Sodium (135-149) mmol/L Potassium (3.6-5.1) mmol/L Chloride (96-114) mmol/L Carbon Dioxide (20-32) mmol/L BUN (5-24) mg/dL Creatinine (0.5-1.5) mg/dL Estimated Creat Clear Estimated GFR ml/min Glucose (60-115) mg/dL Calcium (8.4-10.6) mg/dL C-Reactive Protein (0.5-1.0) mg/dL NT-Pro-B Natriuret Pep (0-125) PG/mL TSH 2.180 (0.270-4.20) uIU/mL SARS-CoV-2 (PCR) Negative SARS-CoV-2 (Negative) Influenza Type A (PCR) Negative PCR FLU A (Negative) Influenza Type B (PCR) Negative PCR FLU B (Negative) RSV (PCR) Negative PCR RSV (Negative) POC Troponin I (0.01-0.04) ng/ml 03/25/22 03/25/22 03/25/22 Range/Units 13:40 13:40 13:40 WBC (4.50-11.00) K/uL RBC (4.30-5.90) m/uL Hgb (13.5-17.5) gm/dL Hct (37.0-53.0) % MCV (80-100) fL MCH (26-34) pg MCHC (32-36) gm/dL RDW Coeff of [place] (11.5-15.5) % Plt Count (140-440) K/uL Neut % (Auto) (42.0-72.0) % Lymph % (Auto) (20-44) % [place] % (Auto) (0.0-11.0) % Eos % (Auto) (0.0-7.0) % Baso % (Auto) (0.0-3.0) % Neut # (Auto) (1.7-7.0) K/uL Lymph # (Auto) (0.90-2.90) K/uL [place] # (Auto) (0.00-0.90) K/UL Eos # (Auto) (0.00-0.50) K/uL Baso # (Auto) (0.00-0.30) K/uL Abs Immat Gran (auto) (0.00-0.30) K/uL INR 1.00 (0.91-1.10) APTT 30 (23-33) Seconds D-Dimer Quant (PE/DVT) 0.29 (0.00-0.50) ug/ml Sodium 134 L (135-149) mmol/L Potassium 3.9 (3.6-5.1) mmol/L Chloride 98 (96-114) mmol/L Carbon Dioxide 27 (20-32) mmol/L BUN 22 (5-24) mg/dL Creatinine 0.9 (0.5-1.5) mg/dL Estimated Creat Clear 112.21 Estimated GFR 105 ml/min Glucose 110 (60-115) mg/dL Calcium 9.9 (8.4-10.6) mg/dL C-Reactive Protein < 0.5 L (0.5-1.0) mg/dL NT-Pro-B Natriuret Pep 263 H (0-125) PG/mL TSH (0.270-4.20) uIU/mL SARS-CoV-2 (PCR) (Negative) Influenza Type A (PCR) (Negative) Influenza Type B (PCR) (Negative) RSV (PCR) (Negative) POC Troponin I 1.19 H (0.01-0.04) ng/ml 03/25/22 Range/Units 15:43 WBC (4.50-11.00) K/uL RBC (4.30-5.90) m/uL Hgb (13.5-17.5) gm/dL Hct (37.0-53.0) % MCV (80-100) fL MCH (26-34) pg MCHC (32-36) gm/dL RDW Coeff of [place] (11.5-15.5) % Plt Count (140-440) K/uL Neut % (Auto) (42.0-72.0) % Lymph % (Auto) (20-44) % [place] % (Auto) (0.0-11.0) % Eos % (Auto) (0.0-7.0) % Baso % (Auto) (0.0-3.0) % Neut # (Auto) (1.7-7.0) K/uL Lymph # (Auto) (0.90-2.90) K/uL [place] # (Auto) (0.00-0.90) K/UL Eos # (Auto) (0.00-0.50) K/uL Baso # (Auto) (0.00-0.30) K/uL Abs Immat Gran (auto) (0.00-0.30) K/uL INR (0.91-1.10) APTT (23-33) Seconds D-Dimer Quant (PE/DVT) (0.00-0.50) ug/ml Sodium (135-149) mmol/L Potassium (3.6-5.1) mmol/L Chloride (96-114) mmol/L Carbon Dioxide (20-32) mmol/L BUN (5-24) mg/dL Creatinine (0.5-1.5) mg/dL Estimated Creat Clear Estimated GFR ml/min Glucose (60-115) mg/dL Calcium (8.4-10.6) mg/dL C-Reactive Protein (0.5-1.0) mg/dL NT-Pro-B Natriuret Pep (0-125) PG/mL TSH (0.270-4.20) uIU/mL SARS-CoV-2 (PCR) (Negative) Influenza Type A (PCR) (Negative) Influenza Type B (PCR) (Negative) RSV (PCR) (Negative) POC Troponin I 1.19 H (0.01-0.04) ng/ml Imaging Data Chest x-ray: Attestation: I have reviewed the pertinent imaging results. My impression: Normal chest x-ray no acute findings Radiologist's impression: No acute finding seen on radiology over read ECG Data Attestation: I personally reviewed and interpreted this ECG as follows: Prior ECG tracings: available for review Interpretation: EKG shows some ST wave flattening noted laterally, no acute ST wave changes, when compared to old EKG no acute changes. Discharge Plan Discharge Clinical Impression: Elevated troponin
[2022-03-25] MEDS: ASPIRIN 81 MG TAB.CHEW 324 MG PO (15:09)
[2022-03-25] MEDS: 0.9 % SODIUM CHLORIDE 1000 ml 1,000 ML IV (15:10)
[2022-03-25 16:08] LABS: Troponin, Point-of-Care* 1.19 ng/ml (0.01-0.04)
--- NOTE | 2022-03-25 17:19 | W.PC.EDHO ---
Primary Language: Preferred Language: Orientation Status: [] Alert & Oriented [] Slight Confusion [] Known Dx Dementia Transfers By: [] Assist of 1 [] Assist of 2 [] Lift Active Medications Discontinued Medications Generic Name Dose Route Start Last Admin Trade Name María PRN Reason Stop Dose Admin Aspirin 324 mg 03/25/22 13:59 03/25/22 15:09 Aspirin 81 Mg Tab.Chew PO 03/25/22 14:00 324 mg ONCE ONE Administration Sodium Chloride 1,000 mls @ 1,000 mls/hr 03/25/22 13:30 03/25/22 16:34 0.9 % Sodium Chloride 1000 Ml IV 03/25/22 14:29 Infused .Q1H EARL Infusion Description of Symptoms ED Triage Present Problem Has been doctor[facility] with [facility] and Description has been having BP med changes due to Bicuspid valve. Started on Terazosin 1 week ago and stopped metoprolol. Yesterday his heart rate went up to 150 for 1 hour and back to normal. Also felt dizzy /light headed and BP was 90/73. Comes here today for evaluation. IV Insertion/Site Date of IV Line Insertion [ 03/25/22 Right Antecubital] Oxygen Administration Pulse Oximetry 96 Pulse Oximetry 96 Pulse Oximetry 96 Pulse Oximetry 18 Pulse Oximetry 99 Oxygen Delivery Method Room Air Oxygen Delivery Method Room Air Oxygen Delivery Method Room Air Oxygen Delivery Method Room Air Oxygen Delivery Method Room Air Oxygen Delivery Method Room Air Oxygen Delivery Method Room Air Cardiac Monitoring EKG Method 12 Lead
--- NOTE | 2022-03-25 18:03 | PM.IMHP1 ---
Hospitalist- H&P: HPI History of Present Illness Date Seen: 03/25/22 Chief complaint: Rapid heart rate 150/low BP yesterday Narrative: Tio Bermeo is a 51 year old male who presented to the ED today for evaluation of rapid heart rate that he noticed yesterday afternoon. He felt palpitations, checked his heart rate and blood pressure with a home cough, noted that heart rate was in the 150s and blood pressure was 90/50. There was no chest pain associated with symptoms, which began as he was standing up from a seated position. He had dizziness and presyncope, no formal syncope. Wonders if GERD contributed (felt burning in his epigastrium), as symptoms improved significantly after taking Pepcid. Known history of gastritis. He was asymptomatic upon arrival to the emergency room (symptoms occurred yesterday). Tio notes similar symptoms during a [place] camping trip. Notes that both both occasions, he had had quite a few beers the night before symptoms began. ER course and findings: - troponin of 1.19, unchanged on repeat. Given 324mg of ASA - reassuring CT scan without any acute findings - no acute EKG changes - ER physician discussed the case with Cardiology, who recommended admission for telemetry and serial troponins Tio has a history of essential HTN, sees Dr. Cordova at the [facility] locally. He also follows with cardiology for history of a bicuspid aortic valve and an enlarged thoracic aorta (45 x 44mm on most recent chest CTA, December 2021). In 2020, he had a reassuring stress test, also had a coronary artery calcium scan exhibiting moderate nonobstructive atherosclerosis. 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 History of sleep apnea, does not use CPAP. Father had NH, age 67. 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 Nonsmoker. Drinks ETOH, not daily. Does drink to excess on occasion (see above). Requests Full Code status. Review of Systems Status of ROS: Reports: 10 or more systems reviewed and unremarkable except as noted in History and below [facility] Medical History (Updated 03/25/22 @ 19:22 by Makayla Lay MD) Bicuspid aortic valve Essential hypertension Sleep apnea Family History (Updated 03/25/22 @ 18:01 by Jessica Gonsales RN) Father Heart attack Diabetes Social History Highest level of school completed/degree received: high school graduate Smoking Status: Never smoker Do you use any of these nicotine containing products: None Second hand tobacco smoke exposure: No How often do you have a drink containing alcohol: never AUDIT-C Alcohol total score: 0 Non-prescribed substance use: denies use Caffeine: Yes (Diet [place] [place]) service: No Meds Home Medications and Allergies Home Medications Medication Instructions Recorded Confirmed Type amlodipine 5 mg tablet 5 mg PO DAILY 03/25/22 03/25/22 History chlorthalidone 25 mg tablet 25 mg PO .daily 03/25/22 03/25/22 History losartan 100 mg tablet 100 mg PO DAILY 03/25/22 03/25/22 History omeprazole 40 mg capsule,delayed 40 mg PO DAILY 03/25/22 03/25/22 History release terazosin 2 mg capsule 2 mg PO DAILY 03/25/22 03/25/22 History Home Medication Comments: Patient recently saw PCP, his amlodipine was changed to terazosin at that time. Allergies Allergy/AdvReac Type Severity Reaction Status Date / Time cat dander Allergy Intermediate Verified 03/25/22 18:27 lisinopril AdvReac Intermediate Verified 03/25/22 18:27 Exam Narrative: Exam Narrative: GEN: Alert and oriented, sitting comfortably in bed and answering questions appropriately HEENT: Normal external ears, EOMIs bilaterally, no scleral icterus CV: RRR, soft systolic murmur without concerning features, no rubs or gallops R: LCTA bilaterally without concerning wheezing, rales, or rhonchi, air movement is adequate Ext: wwp, trace edema bilateral ankles, symmetric Skin: No concerning skin lesions or rashes on exposed skin Neuro: Nonfocal Psych: Appropriate Const: Vital Signs, click to edit/add: Vital Signs - 24 hr 03/25/22 12:39 03/25/22 14:37 03/25/22 14:20 Temperature 97.4 F L Pulse Rate [Pulse Oximeter] 101 H 81 73 Pulse Rate [Radial ] Respiratory Rate 16 Blood Pressure [Ri ght Arm] Blood Pressure [Ri ght Upper Arm] 118/84 138/91 H Pulse Oximetry 99 96 96 Oxygen Delivery Me thod Room Air Room Air Room Air 03/25/22 14:00 03/25/22 13:40 03/25/22 13:20 Temperature Pulse Rate [Pulse Oximeter] 74 87 89 Pulse Rate [Radial ] Respiratory Rate Blood Pressure [Ri ght Arm] Blood Pressure [Ri ght Upper Arm] 117/90 H 122/77 114/71 Pulse Oximetry 96 18 L Oxygen Delivery Me thod Room Air Room Air Room Air 03/25/22 13:00 03/25/22 15:08 03/25/22 17:39 Temperature 97.9 F Pulse Rate [Pulse Oximeter] 94 77 Pulse Rate [Radial ] 83 Respiratory Rate 23 16 Blood Pressure [Ri ght Arm] 149/99 H Blood Pressure [Ri ght Upper Arm] 127/77 146/89 H Pulse Oximetry 100 97 Oxygen Delivery Me thod Room Air Room Air Room Air 03/25/22 15:30 03/25/22 16:00 03/25/22 16:30 Temperature Pulse Rate [Pulse Oximeter] 73 71 82 Pulse Rate [Radial ] Respiratory Rate 15 17 18 Blood Pressure [Ri ght Arm] Blood Pressure [Ri ght Upper Arm] 140/87 H 122/76 143/50 H Pulse Oximetry 99 93 Oxygen Delivery Me thod Room Air Room Air Room Air 03/25/22 17:47 Temperature Pulse Rate [Pulse Oximeter] 76 Pulse Rate [Radial ] Respiratory Rate 15 Blood Pressure [Ri ght Arm] Blood Pressure [Ri ght Upper Arm] 121/101 H Pulse Oximetry 98 Oxygen Delivery Me thod Room Air Hospitalist - H&P: Result Labs Labs: Short CBC 03/25/22 Range/Units 13:40 WBC 6.56 (4.50-11.00) K/uL Hgb 14.0 (13.5-17.5) gm/dL Hct 41.9 (37.0-53.0) % Plt Count 221 (140-440) K/uL BMP 03/25/22 13:40 Sodium 134 L Potassium 3.9 Chloride 98 Carbon Dioxide 27 BUN 22 Creatinine 0.9 Glucose 110 Calcium 9.9 Assessment and Plan Assessment and plan (1) Elevated troponin: Status: Acute Assessment and Plan: Differential diagnosis includes NSTEMI, demand ischemia from recent arrhythmia (presumably AFib given history and alcohol use prior to symptom onset). Patient is entirely pain-free. Admit to telemetry, follow troponins. Repeat EKG with any episodes of CP. Repeat TTE. Will require close follow-up with PCP and Cardiology as an outpatient. (2) Essential hypertension: Status: Acute Assessment and Plan: Continue home medications. (3) Bicuspid aortic valve: Status: Acute Assessment and Plan: Continue routine outpatient f/u with Cardiology. Plan - per above - SCDs and ambulation for ppx, anticipate short hospital stay
[2022-03-25] MEDS: FAMOTIDINE 20 MG TABLET PO (21:20)
[2022-03-25 23:22] LABS: Troponin I* 0.63 ng/mL (0.01-0.04)
[2022-03-26] VITALS (8 sets, daily range): BP systolic 118–148; BP diastolic 76–103; PULSE 62–90; RESP 16–18; TEMP 36.6–36.9; O2SAT 95–96
--- NOTE | 2022-03-26 06:04 | PC.NURSE ---
Shift note: No c/o chest pain, nausea, lightheadedness or dizziness. NSR
[2022-03-26 07:35] LABS: Basophils Absolute Auto 0.02 K/uL (0.00-0.30); Basophils Percent Auto 0.4 % (0.0-3.0); Eosinophils Absolute Auto 0.22 K/uL (0.00-0.50); Eosinophils Percent Auto 4.7 % (0.0-7.0); Hematocrit 39.6 % (37.0-53.0); Hemoglobin* 13.1 gm/dL (13.5-17.5); Immature Granulocytes Abs Auto 0.02 K/uL (0.00-0.30); Lymphocytes Absolute Auto 1.25 K/uL (0.90-2.90); Lymphocytes Percent Auto 26.9 % (20-44); Mean Corpuscular HGB Conc 33 gm/dL (32-36); Mean Corpuscular Hemoglobin 28 pg (26-34); Mean Corpuscular Volume 86 fL (80-100); Monocytes Percent Auto 9.2 % (0.0-11.0); Neutrophils Absolute Auto 2.71 K/uL (1.7-7.0); Neutrophils Percent Auto 58.4 % (42.0-72.0); Platelet Count* 204 K/uL (140-440); RDW Coefficient of Variation % 12.5 % (11.5-15.5); Red Blood Count 4.63 m/uL (4.30-5.90); White Blood Count* 4.65 K/uL (4.50-11.00)
[2022-03-26 07:44] LABS: Albumin* 4.1 g/dL (3.3-5.0); Chloride* 99 mmol/L (96-114); Slide Review Reflex No; Sodium* 134 mmol/L (135-149)
[2022-03-26 07:46] LABS: Bilirubin Total* 0.5 mg/dL (0.1-1.5); Carbon Dioxide* 28 mmol/L (20-32); Creatinine* 0.9 mg/dL (0.5-1.5); Est. Creatinine Clearance* 112.21; Estimated Glomerular Filt Rate 105 ml/min
[2022-03-26 07:47] LABS: Alanine Aminotransferase* 35 U/L (4-50); Alkaline Phosphatase* 62 U/L (40-150); Aspartate Amino Transferase* 31 U/L (12-35); Blood Urea Nitrogen* 19 mg/dL (5-24); Calcium* 9.2 mg/dL (8.4-10.6); Glucose* 105 mg/dL (60-115); Total Protein* 6.5 g/dL (6.0-8.3)
[2022-03-26 08:00] LABS: Troponin I* 0.53 ng/mL (0.01-0.04)
[2022-03-26] MEDS: FAMOTIDINE 20 MG TABLET PO ×2 (08:57→21:09)
[2022-03-26] MEDS: LOSARTAN POTASSIUM 50 MG TABLET 100 MG PO (08:57)
[2022-03-26] MEDS: CHLORTHALIDONE 25 MG TABLET PO (08:57)
[2022-03-26] MEDS: ASPIRIN 81 MG TABLET EC PO (08:58)
[2022-03-26] MEDS: TERAZOSIN HCL 1 MG CAPSULE 2 MG PO (08:58)
--- NOTE | 2022-03-26 13:29 | PM.DS1 ---
DS: Providers Provider Time Seen by Provider: 07:49 Date Seen: 03/26/22 Date of admission: 03/26/22 11:57 Primary care physician: Alejandro Cordova MD Admitting Clinician: Makayla Lay MD Attending Physician on discharge: Violeta Bacon MD Date of Discharge: 03/26/22 DS: Diagnosis Discharge Diagnosis (1) Alcohol abuse, daily use: Status: Acute DS: Summary Time Spent with Patient Time attestation: Total time spent providing and/or coordinating discharge services: Exam Const: Vital Signs, click to edit/add: Vital Signs - 24 hr 03/25/22 14:37 03/25/22 14:20 03/25/22 14:00 Temperature Pulse Rate Pulse Rate [Pulse Oximeter] 81 73 74 Pulse Rate [Radial ] Respiratory Rate Blood Pressure [Ri ght Arm] Blood Pressure [Ri ght Upper Arm] 138/91 H 117/90 H Pulse Oximetry 96 96 96 Oxygen Delivery Me thod Room Air Room Air Room Air 03/25/22 13:40 03/25/22 15:08 03/25/22 17:39 Temperature 97.9 F Pulse Rate Pulse Rate [Pulse Oximeter] 87 77 Pulse Rate [Radial ] 83 Respiratory Rate 16 Blood Pressure [Ri ght Arm] 149/99 H Blood Pressure [Ri ght Upper Arm] 122/77 146/89 H Pulse Oximetry 18 L 100 97 Oxygen Delivery La thod Room Air Room Air Room Air 03/25/22 15:30 03/25/22 16:00 03/25/22 16:30 Temperature Pulse Rate Pulse Rate [Pulse Oximeter] 73 71 82 Pulse Rate [Radial ] Respiratory Rate 15 17 18 Blood Pressure [Ri ght Arm] Blood Pressure [Ri ght Upper Arm] 140/87 H 122/76 143/50 H Pulse Oximetry 99 93 Oxygen Delivery Me thod Room Air Room Air Room Air 03/25/22 17:47 03/25/22 18:19 03/25/22 19:00 Temperature 98.3 F Pulse Rate 86 Pulse Rate [Pulse Oximeter] 76 Pulse Rate [Radial ] 95 Respiratory Rate 15 18 Blood Pressure [Ri ght Arm] 144/84 H Blood Pressure [Ri ght Upper Arm] 121/101 H Pulse Oximetry 98 95 Oxygen Delivery Me thod Room Air Room Air 03/25/22 19:08 03/25/22 23:00 03/25/22 23:00 Temperature Pulse Rate 92 92 Pulse Rate [Pulse Oximeter] Pulse Rate [Radial ] Respiratory Rate Blood Pressure [Ri ght Arm] Blood Pressure [Ri ght Upper Arm] Pulse Oximetry 95 Oxygen Delivery Me thod Room Air 03/26/22 00:00 03/26/22 03:08 03/26/22 03:00 Temperature 98.3 F 98 F Pulse Rate 62 Pulse Rate [Pulse Oximeter] Pulse Rate [Radial ] 70 68 Respiratory Rate 18 16 Blood Pressure [Ri ght Arm] 118/88 130/103 H Blood Pressure [Ri ght Upper Arm] Pulse Oximetry 96 96 Oxygen Delivery Me thod Room Air Room Air 03/26/22 08:00 03/26/22 08:00 03/26/22 08:00 Temperature 98.4 F Pulse Rate 69 Pulse Rate [Pulse Oximeter] Pulse Rate [Radial ] 83 Respiratory Rate 18 Blood Pressure [Ri ght Arm] 130/86 Blood Pressure [Ri ght Upper Arm] Pulse Oximetry 95 95 Oxygen Delivery La thod Room Air Room Air 03/26/22 08:00 Temperature Pulse Rate 69 Pulse Rate [Pulse Oximeter] Pulse Rate [Radial ] Respiratory Rate Blood Pressure [Ri ght Arm] Blood Pressure [Ri ght Upper Arm] Pulse Oximetry Oxygen Delivery Me thod DS: Data Data Completed and Pending Labs on day of discharge: Labs from last 24 hours 03/26/22 03/26/22 03/25/22 07:04 07:04 22:35 WBC 4.65 RBC 4.63 Hgb 13.1 L Hct 39.6 MCV 86 MCH 28 MCHC 33 RDW Coeff of Tim[place] 12.5 Plt Count 204 Neut % (Auto) 58.4 Lymph % (Auto) 26.9 [place] % (Auto) 9.2 Eos % (Auto) 4.7 Baso % (Auto) 0.4 Neut # (Auto) 2.71 Lymph # (Auto) 1.25 [place] # (Auto) 0.40 Eos # (Auto) 0.22 Baso # (Auto) 0.02 Abs Immat Gran (auto) 0.02 INR APTT D-Dimer Quant (PE/DVT) Sodium 134 L Potassium 4.0 Chloride 99 Carbon Dioxide 28 BUN 19 Creatinine 0.9 Estimated Creat Clear 112.21 Estimated GFR 105 Glucose 105 Calcium 9.2 Total Bilirubin 0.5 AST 31 ALT 35 Alkaline Phosphatase 62 Troponin I 0.53 H* 0.63 H* C-Reactive Protein NT-Pro-B Natriuret Pep Total Protein 6.5 Albumin 4.1 TSH SARS-CoV-2 (PCR) Influenza Type A (PCR) Influenza Type B (PCR) RSV (PCR) POC Troponin I 03/25/22 03/25/22 03/25/22 15:43 13:40 13:40 WBC RBC Hgb Hct MCV MCH MCHC RDW Coeff of [place] Plt Count Neut % (Auto) Lymph % (Auto) [place] % (Auto) Eos % (Auto) Baso % (Auto) Neut # (Auto) Lymph # (Auto) [place] # (Auto) Eos # (Auto) Baso # (Auto) Abs Immat Gran (auto) INR APTT D-Dimer Quant (PE/DVT) Sodium 134 L Potassium 3.9 Chloride 98 Carbon Dioxide 27 BUN 22 Creatinine 0.9 Estimated Creat Clear 112.21 Estimated GFR 105 Glucose 110 Calcium 9.9 Total Bilirubin AST ALT Alkaline Phosphatase Troponin I C-Reactive Protein < 0.5 L NT-Pro-B Natriuret Pep 263 H Total Protein Albumin TSH SARS-CoV-2 (PCR) Influenza Type A (PCR) Influenza Type B (PCR) RSV (PCR) POC Troponin I 1.19 H 1.19 H 03/25/22 03/25/22 03/25/22 13:40 13:40 13:40 WBC 6.56 RBC 4.96 Hgb 14.0 Hct 41.9 MCV 85 MCH 28 MCHC 33 RDW Coeff of [place] 12.4 Plt Count 221 Neut % (Auto) 63.4 Lymph % (Auto) 27.1 [place] % (Auto) 6.4 Eos % (Auto) 2.6 Baso % (Auto) 0.3 Neut # (Auto) 4.16 Lymph # (Auto) 1.78 [place] # (Auto) 0.40 Eos # (Auto) 0.17 Baso # (Auto) 0.02 Abs Immat Gran (auto) 0.01 INR 1.00 APTT 30 D-Dimer Quant (PE/DVT) 0.29 Sodium Potassium Chloride Carbon Dioxide BUN Creatinine Estimated Creat Clear Estimated GFR Glucose Calcium Total Bilirubin AST ALT Alkaline Phosphatase Troponin I C-Reactive Protein NT-Pro-B Natriuret Pep Total Protein Albumin TSH 2.180 SARS-CoV-2 (PCR) Influenza Type A (PCR) Influenza Type B (PCR) RSV (PCR) POC Troponin I 03/25/22 13:21 WBC RBC Hgb Hct MCV MCH MCHC RDW Coeff of Tim[place] Plt Count Neut % (Auto) Lymph % (Auto) [place] % (Auto) Eos % (Auto) Baso % (Auto) Neut # (Auto) Lymph # (Auto) [place] # (Auto) Eos # (Auto) Baso # (Auto) Abs Immat Gran (auto) INR APTT D-Dimer Quant (PE/DVT) Sodium Potassium Chloride Carbon Dioxide BUN Creatinine Estimated Creat Clear Estimated GFR Glucose Calcium Total Bilirubin AST ALT Alkaline Phosphatase Troponin I C-Reactive Protein NT-Pro-B Natriuret Pep Total Protein Albumin TSH SARS-CoV-2 (PCR) Negative SARS-CoV-2 Influenza Type A (PCR) Negative PCR FLU A Influenza Type B (PCR) Negative PCR FLU B RSV (PCR) Negative PCR RSV POC Troponin I Discharge Plan Discharge Date of Admission: 03/26/22 11:57 Attending Physician on Admission: Violeta Bacon Primary Care Provider: Alejandro Cordova Discharge Medications: No Action terazosin 2 mg capsule 2 mg PO DAILY losartan 100 mg tablet 100 mg PO DAILY chlorthalidone 25 mg tablet 25 mg PO DAILY famotidine [Acid Controller] 20 mg tablet 20 mg PO BID Follow Up Appointments: Alejandro Cordova MD [Primary Care Provider] -
--- NOTE | 2022-03-26 17:43 | P.IMPN_ITS ---
Progress Note: A&P Assessment and plan (1) Elevated troponin: Status: Acute Assessment and Plan: Elevated troponin that is trending downward, and associated with symptomatic tachycardia and hypotension 2 days ago. Patient has been asymptomatic since t hen. He has no history of arrhythmia, but drinks daily and has had these episodes twice now after being heavily the day before. This patient normally sees Dr. Shea at [facility]. I spoke with Dr. Rose from Cardiology at [facility] who recommended that he have a coronary CTA as an inpatient prior to discharging home. I attempted to transfer this patient to [facility] however they or fall and had no beds available. They could not even put him on the wait list at the time. I then spoke with [facility] also noted that they had no beds available and were also unable to take this patient for a CTA and then transfer back to us. We also spoke with several other hospitals including [facility], [facility], [facility], [facility], [facility] and [facility]. All are on diversion at this time. Since he is stable and non emergent, I will keep him yet overnight on telemetry and monitor for symptoms. At the end of the day we were able to call back to [facility] and get him placed on the list for cardiac bed at [facility]. (2) Abdominal aortic aneurysm (AAA) 3.0 cm to 5.5 cm in diameter in male: Problem details: 4.5 cm on ECHO 03/26/2022 Status: Acute (3) LVH (left ventricular hypertrophy): Problem details: Significant on ECHO 03/26/2022. Status: Acute (4) Alcohol abuse, daily use: Status: Acute (5) Sleep apnea: Status: Chronic (6) Essential hypertension: Status: Chronic (7) Bicuspid aortic valve: Status: Chronic Subjective Time Seen by Provider: 07:49 Date Seen: 03/26/22 Interval history: Tio is feeling well today. He wants to go home. He says he is not had any symptoms since Friday morning. He was surprised that he had to come to the hospital in the 1st place. He denies any chest pain or shortness of breath, nausea or dizziness. His is in the room with him. Exam Narrative: Exam Narrative: General: No acute distress. Awake, alert, oriented x3. No pallor. No jaundice. Oropharynx: Clear. Mucous membranes moist. Cardiovascular: Regular rate and rhythm. No murmurs, gallops, or rubs. Respiratory: Clear to auscultation bilaterally. No wheezes or crackles. Abdomen: Bowel sounds present. Soft, nondistended, nontender. Extremities: No pedal edema. Const: Vital Signs, click to edit/add: Vital Signs - 24 hr 03/25/22 17:47 03/25/22 18:19 03/25/22 19:00 Temperature 98.3 F Pulse Rate 86 Pulse Rate [Pulse Oximeter] 76 Pulse Rate [Radial ] 95 Respiratory Rate 15 18 Blood Pressure [Ri ght Arm] 144/84 H Blood Pressure [Ri ght Upper Arm] 121/101 H Pulse Oximetry 98 95 Oxygen Delivery Me thod Room Air Room Air 03/25/22 19:08 03/25/22 23:00 03/25/22 23:00 Temperature Pulse Rate 92 92 Pulse Rate [Pulse Oximeter] Pulse Rate [Radial ] Respiratory Rate Blood Pressure [Ri ght Arm] Blood Pressure [Ri ght Upper Arm] Pulse Oximetry 95 Oxygen Delivery Il thod Room Air 03/26/22 00:00 03/26/22 03:08 03/26/22 03:00 Temperature 98.3 F 98 F Pulse Rate 62 Pulse Rate [Pulse Oximeter] Pulse Rate [Radial ] 70 68 Respiratory Rate 18 16 Blood Pressure [Ri ght Arm] 118/88 130/103 H Blood Pressure [Ri ght Upper Arm] Pulse Oximetry 96 96 Oxygen Delivery Il thod Room Air Room Air 03/26/22 08:00 03/26/22 08:00 03/26/22 08:00 Temperature 98.4 F Pulse Rate 69 Pulse Rate [Pulse Oximeter] Pulse Rate [Radial ] 83 Respiratory Rate 18 Blood Pressure [Ri ght Arm] 130/86 Blood Pressure [Ri ght Upper Arm] Pulse Oximetry 95 95 Oxygen Delivery Il thod Room Air Room Air 03/26/22 08:00 03/26/22 11:00 03/26/22 15:00 Temperature 98.4 F Pulse Rate 69 Pulse Rate [Pulse Oximeter] Pulse Rate [Radial ] 90 77 Respiratory Rate 18 18 Blood Pressure [Ri ght Arm] 132/76 Blood Pressure [Ri ght Upper Arm] Pulse Oximetry 96 Oxygen Delivery Il thod Room Air 03/26/22 15:00 03/26/22 16:00 03/26/22 16:00 Temperature 98.4 F Pulse Rate 80 Pulse Rate [Pulse Oximeter] Pulse Rate [Radial ] 77 Respiratory Rate 18 Blood Pressure [Ri ght Arm] 148/84 H Blood Pressure [Ri ght Upper Arm] Pulse Oximetry 95 Oxygen Delivery Me thod Room Air Room Air Labs Labs: Laboratory Results - last 24 hr 03/25/22 03/26/22 03/26/22 22:35 07:04 07:04 WBC 4.65 RBC 4.63 Hgb 13.1 L Hct 39.6 MCV 86 MCH 28 MCHC 33 RDW Coeff of [place] 12.5 Plt Count 204 Neut % (Auto) 58.4 Lymph % (Auto) 26.9 [place] % (Auto) 9.2 Eos % (Auto) 4.7 Baso % (Auto) 0.4 Neut # (Auto) 2.71 Lymph # (Auto) 1.25 [place] # (Auto) 0.40 Eos # (Auto) 0.22 Baso # (Auto) 0.02 Abs Immat Gran (auto) 0.02 Sodium 134 L Potassium 4.0 Chloride 99 Carbon Dioxide 28 BUN 19 Creatinine 0.9 Estimated Creat Clear 112.21 Estimated GFR 105 Glucose 105 Calcium 9.2 Total Bilirubin 0.5 AST 31 ALT 35 Alkaline Phosphatase 62 Troponin I 0.63 H* 0.53 H* Total Protein 6.5 Albumin 4.1
[2022-03-27] VITALS: PULSE 100
[2022-03-27 03:00] VITALS: BP 129/76; PULSE 79; RESP 18; O2SAT 95
--- NOTE | 2022-03-27 07:07 | PC.NURSE ---
Pt slept well. Tele NSR. Up x1 to void and 1x to shower. Up this am early to shower. IV without s/s of infection. Is patent. No c/o CP.
[2022-03-27 07:16] LABS: Chloride* 99 mmol/L (96-114); Sodium* 133 mmol/L (135-149)
[2022-03-27 07:19] LABS: Carbon Dioxide* 27 mmol/L (20-32); Est. Creatinine Clearance* 100.98; Estimated Glomerular Filt Rate 92 ml/min
[2022-03-27 07:20] LABS: Blood Urea Nitrogen* 20 mg/dL (5-24); Calcium* 9.1 mg/dL (8.4-10.6); Glucose* 109 mg/dL (60-115)
[2022-03-27 07:27] LABS: Basophils Absolute Auto 0.02 K/uL (0.00-0.30); Basophils Percent Auto 0.4 % (0.0-3.0); Eosinophils Percent Auto 3.7 % (0.0-7.0); Hematocrit 39.7 % (37.0-53.0); Hemoglobin* 13.4 gm/dL (13.5-17.5); Immature Granulocytes Abs Auto 0.02 K/uL (0.00-0.30); Lymphocytes Absolute Auto 1.64 K/uL (0.90-2.90); Lymphocytes Percent Auto 30.5 % (20-44); Mean Corpuscular HGB Conc 34 gm/dL (32-36); Mean Corpuscular Hemoglobin 29 pg (26-34); Mean Corpuscular Volume 85 fL (80-100); Neutrophils Absolute Auto 2.96 K/uL (1.7-7.0); Platelet Count* 217 K/uL (140-440); RDW Coefficient of Variation % 12.3 % (11.5-15.5); Red Blood Count 4.67 m/uL (4.30-5.90); White Blood Count* 5.38 K/uL (4.50-11.00)
[2022-03-27 07:32] LABS: Slide Review Reflex No
[2022-03-27 07:46] LABS: Troponin I* 0.36 ng/mL (0.01-0.04)
--- NOTE | 2022-03-27 07:52 | PC.NURSE ---
Lab called with critical- troponin 0.36, Dr. Lay aware.
[2022-03-27 07:55] VITALS: PULSE 99
[2022-03-27 08:00] VITALS: O2SAT 96
[2022-03-27 08:18] VITALS: BP 128/86; PULSE 94; RESP 16; TEMP 36.8; O2SAT 96
[2022-03-27] MEDS: FAMOTIDINE 20 MG TABLET PO (09:25)
[2022-03-27] MEDS: CHLORTHALIDONE 25 MG TABLET PO (09:25)
[2022-03-27] MEDS: LOSARTAN POTASSIUM 50 MG TABLET 100 MG PO (09:25)
[2022-03-27] MEDS: ASPIRIN 81 MG TABLET EC PO (09:25)
[2022-03-27] MEDS: TERAZOSIN HCL 1 MG CAPSULE 2 MG PO (09:26)
--- NOTE | 2022-03-27 10:38 | P.DS_ITS ---
DS: Providers Provider Date Seen: 03/27/22 Date of admission: 03/26/22 11:57 Primary care physician: Alejandro Cordova MD Admitting Clinician: Makayla Lay MD Consults: Cardiology by phone (Dr. Ragini Villalobos) Attending Physician on discharge: Violeta Bacon MD Date of Discharge: 03/27/22 DS: Diagnosis Discharge Diagnosis (1) LVH (left ventricular hypertrophy): Status: Acute Problem details: TTE results 03/26/22 Final Impressions: 1. Normal left ventricular size, moderately increased wall thickness, hyperdynamic global systolic function, calculated EF of 75 %. 2. Right ventricular cavity size is normal, global systolic RV function is normal. 3. Normal left atrium size. 4. There is a calcified raphe (RCC and LCC), bicuspid aortic valve, no stenosis and mild to moderate regurgitation. 5. VC width 0.43cm. 6. The mitral valve is normal, trace mitral regurgitation. 7. Tricuspid valve is normal. 8. 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 9. Normal estimated pulmonary pressures by tricuspid regurgitation velocity and right atrial pressure (23 mmHg plus RAP). 10. The aortic sinus is dilated with a maximal diameter of 3.8 cm. 11. No pericardial effusion. (2) Sleep apnea: Status: Chronic (3) Elevated troponin: Status: Acute Problem details: peak at 1.19 (4) Bicuspid aortic valve: Status: Chronic (5) Essential hypertension: Status: Chronic (6) Abdominal aortic aneurysm (AAA) 3.0 cm to 5.5 cm in diameter in male: Status: Acute Problem details: 4.5 cm on ECHO 03/26/2022 DS: Summary Hospital Course Hospital Course: 51-year-old male, admitted to the hospital on 03/25 after experiencing a rapid heart rate that was accompanied by hypotension and dizziness on 03/24. Patient's symptoms had resolved prior to ER visit; it was presumed that he had AFib with RVR given alcohol use the night prior to symptoms. Troponin on admission noted to be 1.19, patient was pain free at the time. Throughout hospital stay, Tio remained in normal sinus rhythm, blood pressure remained stable on home medications, and troponin trended downward. Elevated troponin thought to be related to NSTEMI verses demand ischemia. Repeat TTE obtained on 03/26: Final Impressions: 1. Normal left ventricular size, moderately increased wall thickness, hyperdynamic global systolic function, calculated EF of 75 %. 2. Right ventricular cavity size is normal, global systolic RV function is normal. 3. Normal left atrium size. 4. There is a calcified raphe (RCC and LCC), bicuspid aortic valve, no stenosis and mild to moderate regurgitation. 5. VC width 0.43cm. 6. The mitral valve is normal, trace mitral regurgitation. 7. Tricuspid valve is normal. 8. 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 9. Normal estimated pulmonary pressures by tricuspid regurgitation velocity and right atrial pressure (23 mmHg plus RAP). 10. The aortic sinus is dilated with a maximal diameter of 3.8 cm. 11. No pericardial effusion. Dr. Villalobos of Cardiology consulted by phone on 03/26, recommended coronary CT angiogram prior to discharge. We were able to arrange this to be done at [facility] on 03/27 with close cardiology follow-up (patient will be seen urgently if there are acute changes on coronary CTA). Patient is discharged to [facility] on 03/27 in stable condition. Status at Discharge Overall status at discharge: patient is progressing back to baseline Time Spent with Patient Time attestation: Total time spent providing and/or coordinating discharge services: Time spent: Greater than 30 minutes Specific discharge activities: Coordination of care with specialty team, arranging outpatient appointments, updating patient and family Exam Narrative: Exam Narrative: GEN: Alert and oriented, sitting in bedside chair and speaking in full sentences HEENT: Normal external ears, EOMIs bilaterally, no scleral icterus CV: RRR, soft systolic murmur without concerning features, stable from admission R: LCTA bilaterally without concerning wheezing, rales, or rhonchi Ext: wwp, no concerning edema Skin: No concerning skin lesions or rashes on exposed skin Neuro: Nonfocal Psych: Appropriate Const: Vital Signs, click to edit/add: Vital Signs - 24 hr 03/26/22 11:00 03/26/22 15:00 03/26/22 15:00 Temperature 98.4 F 98.4 F Pulse Rate Pulse Rate [Radial ] 90 77 77 Respiratory Rate 18 18 18 Blood Pressure [Ri ght Arm] 132/76 148/84 H Pulse Oximetry 96 95 Oxygen Delivery Me thod Room Air Room Air 03/26/22 16:00 03/26/22 16:00 03/26/22 23:00 Temperature 98 F Pulse Rate 80 Pulse Rate [Radial ] 79 Respiratory Rate 18 Blood Pressure [Ri ght Arm] 131/82 Pulse Oximetry 95 Oxygen Delivery Me thod Room Air Room Air 03/26/22 23:00 03/27/22 00:00 03/27/22 00:00 Temperature Pulse Rate 100 Pulse Rate [Radial ] 79 Respiratory Rate 18 Blood Pressure [Ri ght Arm] Pulse Oximetry Oxygen Delivery Me thod Room Air 03/27/22 03:00 03/27/22 08:18 03/27/22 08:00 Temperature 98.2 F Pulse Rate Pulse Rate [Radial ] 79 94 Respiratory Rate 18 16 Blood Pressure [Ri ght Arm] 129/76 128/86 Pulse Oximetry 95 96 96 Oxygen Delivery Me thod Room Air Room Air Room Air 03/27/22 07:55 Temperature Pulse Rate 99 Pulse Rate [Radial ] Respiratory Rate Blood Pressure [Ri ght Arm] Pulse Oximetry Oxygen Delivery Me thod DS: Data Data Completed and Pending Pending studies at discharge: Coronary CTA Labs on day of discharge: Labs from last 24 hours 03/27/22 03/27/22 06:42 06:42 WBC 5.38 RBC 4.67 Hgb 13.4 L Hct 39.7 MCV 85 MCH 29 MCHC 34 RDW Coeff of Timi 12.3 Plt Count 217 Neut % (Auto) 55.0 Lymph % (Auto) 30.5 [place] % (Auto) 10.0 Eos % (Auto) 3.7 Baso % (Auto) 0.4 Neut # (Auto) 2.96 Lymph # (Auto) 1.64 [place] # (Auto) 0.50 Eos # (Auto) 0.20 Baso # (Auto) 0.02 Abs Immat Gran (auto) 0.02 Sodium 133 L Potassium 4.0 Chloride 99 Carbon Dioxide 27 BUN 20 Creatinine 1.0 Estimated Creat Clear 100.98 Estimated GFR 92 Glucose 109 Calcium 9.1 Troponin I 0.36 H* Discharge Plan Discharge Disposition: Yasmeen Melgoza Date of Admission: 03/26/22 11:57 Attending Provider on Discharge: Makayla Lay Primary Care Provider: Alejandro Cordova Condition: Stable Anticipated Discharge Date/Time: 03/27/22 11:00 Discharge Medications: Continued terazosin 2 mg capsule 2 mg PO DAILY losartan 100 mg tablet 100 mg PO DAILY chlorthalidone 25 mg tablet 25 mg PO DAILY famotidine [Acid Controller] 20 mg tablet 20 mg PO BID Discharge Orders: Discharge Order (Routine); Ordered 03/27/22 Ordered By: Makayla Lay Activity Level: No strenuous activity Discharge Diet: Regular Follow Up Appointments: Alejandro Cordova MD [Primary Care Provider] - (within 1 week for hospital f/u and to ensure Cardiology f/u has been scheduled) Gilmer Barrios [Staff Physician] - (Patient has seen Dr. Shea in the past, Dr. Villalobos also consulted by phone) Forms: [employer] Info Instructions Hospital Course: 51-year-old male, admitted to the hospital on 03/25 after experiencing a rapid heart rate that was accompanied by hypotension and dizziness on 03/24. Patient's symptoms had resolved prior to ER visit; it was presumed that he had AFib with RVR given alcohol use the night prior to symptoms. Troponin on admission noted to be 1.19, patient was pain free at the time. Throughout hospital stay, Tio remained in normal sinus rhythm, blood pressure remained stable on home medications, and troponin trended downward. Elevated troponin thought to be related to NSTEMI verses demand ischemia. Repeat TTE obtained on 03/26: Final Impressions: 1. Normal left ventricular size, moderately increased wall thickness, hyperdynamic global systolic function, calculated EF of 75 %. 2. Right ventricular cavity size is normal, global systolic RV function is normal. 3. Normal left atrium size. 4. There is a calcified raphe (RCC and LCC), bicuspid aortic valve, no stenosis and mild to moderate regurgitation. 5. VC width 0.43cm. 6. The mitral valve is normal, trace mitral regurgitation. 7. Tricuspid valve is normal. 8. 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 9. Normal estimated pulmonary pressures by tricuspid regurgitation velocity and right atrial pressure (23 mmHg plus RAP). 10. The aortic sinus is dilated with a maximal diameter of 3.8 cm. 11. No pericardial effusion. Dr. Villalobos of Cardiology consulted by phone on 03/26, recommended coronary CT angiogram prior to discharge. We were able to arrange this to be done at [facility] on 03/27 with close cardiology follow-up (patient will be seen urgently if there are acute changes on coronary CTA). Patient is discharged to [facility] on 03/27 in stable condition. Discharge Comments: to [facility] for CTA, final plan pending results
--- NOTE | 2022-03-27 12:06 | PC.NURSE ---
Patient left electronic in room upon transfer via EMS. Called Venita who will turkey picker tablet from ED entrance when able.
== END 2022-03-27 11:27 | disposition short-term general hospital (02) | DRG 190 ==
LOC: ED 13:58 → MEDSURG 03-27 10:38
PROVIDERS: Admitting Provider Family Medicine; Emergency Provider Family Medicine; PCP Family Medicine; Visit Provider Family Medicine
DX: I21.4 Non-ST elevation (NSTEMI) myocardial infarction (principal); I10 Essential (primary) hypertension; Q23.1 Congenital insufficiency of aortic valve; E78.5 Hyperlipidemia, unspecified; I71.40 Abdominal aortic aneurysm, without rupture, unspecified; I51.7 Cardiomegaly; F10.10 Alcohol abuse, uncomplicated; G47.30 Sleep apnea, unspecified; I25.10 Atherosclerotic heart disease of native coronary artery without angina pectoris; Z82.49 Family history of ischemic heart disease and other diseases of the circulatory system; Z83.3 Family history of diabetes mellitus
CPT/HCPCS: 36415; 71046; 71270; 74177; 80048; 80053; 83880; 84443; 84484; 85025; 85379; 85610; 85730; 86140; 87502; 87634; 87635; 93005; 93306; 99285; G0378; A9270; J7030; Q9967

== ENCOUNTER 2022-03-27 11:19 | Outpatient (CLI) | payer BC, SELFPAY ==
--- OUTSIDE RECORDS SUMMARY | 2022-04-22 18:27 | XMS_ITS | Clinical Summary ---
:1970 Author Organization [facility] Address [address] [place] [id number] Care Team Providers Name Role Phone Unavailable Primary Care Provider Unavailable Source Comments Patient records contain information from all sites at [facility]. For routine questions regarding patient records, call [phone] during business hours, M-F 8:00 AM - 5:00 PM Central Time. Record requests for emergency care only can be directed to [phone] at any time.[facility] Social History Tobacco Use Types Packs/Day Years Used Date Smoking Tobacco: Never Assessed Sex Assigned at Date Recorded Not on file Plan of Treatment Health Maintenance Due Date Last Done Comments CT Colonography 1972 Cologuard 1972 Colonoscopy 1972 Colorectal Cancer Screening 1970 FIT 1972 HIV Screening 1972 Hepatitis B Vaccines (1 of 1972 3 - 3-dose series) Hepatitis C Screening 1972 COVID-19 Vaccine (#1) 1972 Depression Screening 06/09/2021 (Annual PHQ-2) Creatinine Level 02/05/2022 02/05/2021, 02/05/2021, 08/21/2020, Additional history exists Sodium Level 02/05/2022 02/05/2021, 07/13/2019 Influenza Vaccine (#1) 2022 DTaP,Tdap,and Td Vaccines 05/08/2022 05/08/2012 (2 - Td or Tdap) Potassium Level 12/05/2022 12/05/2021, 02/05/2021, 08/21/2020, Additional history exists Fasting Glucose for 02/06/2024 02/05/2021, 07/13/2019 Diabetes Screening Lipid (Cholesterol) 08/21/2025 08/21/2020, 07/13/2019 Screening Pneumococcal vaccine (0-64 Aged Out No lo nger eligible years) based on patient 's age to complete this topic Insurance Payer Benefit Plan / Subscriber ID Effective Dates Phone Addre ss Type Group [facility] [id number] [phone] [address] [facility] [address] [place] [address]
--- OUTSIDE RECORDS SUMMARY | 2022-04-22 18:27 | XMS_ITS | Clinical Summary ---
:1970 Author Organization [employer] [facility] [place] [address] Care Team Providers Name Role Phone Alejandro Cordova MD Primary Care Provider [phone] Allergies Active Allergy Reactions Severity Noted Date Comments Amlodipine Tachycardia Medium 03/18/2022 Cats (Fur, Dander, Saliva) Shortness Of Breath Low 011 Terazosin Tachycardia Medium 04/01/2022 Lisinopril Cough 11/05/2012 Metoprolol Other - Describe [...] mg) by mouth Essential once daily. hypertension aspirin (ECOTRIN) 81 Take 1 0 Active mg enteric coated Tablet (81 2 tabletIndications: mg) by mouth ASCVD once daily (arteriosclerotic with a meal. cardiovascular disease) rosuvastatin Take 1 30 Tablet 1 Active (CRESTOR) 20 mg Tablet (20 2 tabletIndications: mg) by mouth ASCVD at bedtime. (arteriosclerotic cardiovascular disease) terazosin (HYTRIN) 2 Take 1 30 Capsule 5 03/28/20 Discontinued mg Capsule (2 2 22 (*IP capsuleIndications: mg) by mouth Discontinued) Essential every hypertension morning. Active Problems Problem Noted Date Elevated troponin level not due myocardial infarction 03/28/2022 Morbid obesity with BMI of 40.0-44.9, adult [...] Encounters Date Type Specialty Care Team Description 04/15/2022 Telephone Alejandro Cordova Medication Man heidi Velasquez MD (rosuvastatin) 04/01/2022 Office Visit Alejandro Cordova [facility] F/U MD Ron 04/01/2022 Travel 03/29/2022 Telephone Alejandro Cordova Form MD Ron 03/29/2022 Orders Only Staff, Other Clinical <No sc ans attached> 03/27/2022 - Hospital Encounter Bran Cain A SCVD (arteriosclerotic cardiovascular disease) (Primary Dx); 03/28/2022 Cardiovascular symptoms; Bill Terry Palpitations MD Sathya [facility], [facility] Hospitalists Of Discharge Summary - Bill Terry MD - 03/28/2022 5:00 PM CDT Images from the original not e were not included. HOSPITALIST DISCHARGE SUMMAR Y ? ? [facility] Admission Date: 03/27/2022 Discharge Date: 03/28/2022 Discharge Plan: Evita eden was discharged to home. Principal Diagnosis Palpitations Troponin elevation - demand ischemia in setting of tachyarrhythmia Hospital Problem List Principal Problem: NSTEMI (non-ST elevated carmel cardial infarction) (HC) Active Problems: Other mixed anxiety disorde rs Essential hypertension ALEXANDRO on CPAP Enlarged thoracic aorta (HC ) Gastroesophageal reflux dis ease Bicuspid aortic valve Morbid obesity with BMI of 40.0-44.9, adult (HC) ADDITIONAL COMMENTS DIONIN G DIAGNOSIS SPECIFICITY Additional Diagnosis Informa tion ?? Hospital Course Evita Bermeo is a 51 y. o. male with a history of bicuspid aortic valve without significant stenosis, mildly dilated ascending aorta, gastroesophogeal reflux disease, obstructive sleep apnea, anxiet y, among other diagnosis, nunu gonzalez was admitted to [facility] on 03/27/22 after presenting to the [place] ED with palpitations, found to have elevated troponin consistent with NSTEMI. On review, the patient has b een having intermittent episodes of palpitations over the past several days to weeks. He has been seen in his PCP office on multiple occasions and had his antihypertensive re gimen adjusted. Then on 03/09 11/28 he again had an episode of palpitations and reported that the palpitations radiated into his neck and he felt his chest fluttering. The episode was more symptomatic than previous and lasted 4-6 luis rs. He did not seek care that day but was seen on 03/25/22. His Troponin was elevated. His EKG was not normal but he was in normal sinus rhythm. He had an echocardiogram that showed a normal ejection fr action and left ventricular hypertrophy with the known bicuspid aortic valve. CT coronary angiogram was technically difficult, but mentioned diffuse MV CAD with intermediate mLAD stenosis that was yuriy rning to be hemodynamically significant. He was eventually arranged f or admission to [facility] on 03/27/22. Cardiology consulted on admission. Taken for coronary angiogram +/- PCI on 03/28/22. He was found to have CAD with luminal irregularities in the LMCA and LAD, with 80% s tenosis in the distal circumflex (small vessel) and 30% stenosis in the 1st marginal. Lesions not suitable for intervention. Recommended medical management. Follow up cardiac MRI was unrevealing (per Ca rdiology, final read pending at time of discharge). No tachyarrhythmias noted during his hospital stay, but suspected that tachyarrhythmia with palpitations caused demand isc hemia and elevated troponin. Plan for Ziopatch on discharge. Additionally, he had LVH on echocardiogram, but blood pressure was well controlled in the hospital. Plan to continue with losartan and chlort halidone, but terazosin was discontinued per Cardiology. Patient otherwise remained s table and was arranged to discharge home on 03/28/22. Instructed to follow up with his PCP and with Cardiology as scheduled. Recommendations for Outpatie nt Provider ? ? PCP: Alejandro Cordova MD Recommendations for outpati ent provider Specific recommendations to be addressed at the follow up visit: - Routine post-hospital and medical follow-up. - Follow up with Cardiology as scheduled with review of Ziopatch results. Medication regimen changes: see Hospital Course above. Aspirin and rosuvastatin per Cardiology. Terazosin was discontinued. Follow-up labs/imaging: none Other specialty follow-up no t included in DC orders: none Special considerations: none . Functional evaluations: Fall Risk: Total Score (If 5 or > is High Risk): 2 (03/28/22 0800) NuDESC (>/=2 abnormal): 0 ( 03/28/22 0800) MOCA: // SLUMS: Discharge Medications Your Home Medicines START taking these medicines Instructions aspirin 81 mg enteric coated tablet For diagnoses: ASCVD (arteri osclerotic cardiovascular disease) Start taking on: March 29, 2022 Commonly known as: ECOTRIN Take 1 Tablet (81 mg) by mo uth once daily with a meal. rosuvastatin 20 mg tablet For diagnoses: ASCVD (arteri osclerotic cardiovascular disease) Commonly known as: CRESTOR Take 1 Tablet (20 mg) by mo uth at bedtime. CONTINUE taking these medici alva Instructions chlorthalidone 25 mg tablet For diagnoses: Essential hyp ertension Commonly known as: HYGROTON Take 1 Tablet (25 mg) by mo uth once daily. famotidine 20 mg tablet For diagnoses: Gastroesophag eal reflux disease, unspecified whether esophagitis present, Esophageal dysphagia Commonly known as: PEPCID Take 1 Tablet (20 mg) by mo uth in the morning and 1 Tablet (20 mg) in the evening. losartan 100 mg tablet For diagnoses: Essential hyp ertension Commonly known as: COZAAR Take 1 Tablet (100 mg) by m outh once daily. STOP taking these medicines terazosin 2 mg capsule Commonly known as: HYTRIN Where to get your medicines These medications were sent to [id number] [place], [place] - [address] AT [facility] [address] - [phone], [facility] [address] ?? rosuvastatin 20 mg tablet Pertinent Findings / Procedu res First weight: Last weight: Labs Renal Heme GI 03/28/22 0659 SODIUM 137 POTASSIUM 4.2 CHLORIDE 103 [id number] 28 ANIONGAP 6 CREATININE 1.01 Cardiopulmonary ID Endo 03/27/22 1808 03/28/22 0019 03/28/22 0659 TROPONINI 1.231* 1.148* 1.10 3* COVID-19: Not on local file Micro None Imaging Cardiac MRI Final read pending CT CARDIAC CORONARY ARTERIES DUAL READ * Technically difficult stud y in this morbidly obese patient who was tachycardiac at the scanneracquisition * 1) Diffuse multivessel coron lidia atherosclerosis with intermediate mid LAD stenosis (50-69%) which is likely hemodynamically significant. - Anomalous RCA origin arisi ng from the anterior ST junction. - Mid and distal RCA have si gnificant motion artifact. - Total coronary artery calc ium score 123. PERRY percentile based on age, gender, and race is 92. 2) Incidental dilation of th e ascending thoracic aorta (44 x 45 mm, area index: 8.0 cm2/m). RECOMMENDATIONS: - Acute coronary syndrome is likely. - Scan findings suggest leia ent will likely benefit from aggressive management of risk factors. - Cardiology consultation fo r management of coronary artery disease is strongly recommended. Impression: No noncardiovascular abnorma lity. Procedures PRESENTATION / INDICATIONS * Urgent * NonSTEMI VASCULAR ACCESS * Using ultrasound guidance and a percutaneous technique, the right radial artery was accessed. Ultrasound was used to confirm vessel patency, localizing needle into the lumen of the vessel. An image was saved for the medical record. DIAGNOSTIC SUMMARY - The LMCA has mild luminal irregularities. - The LAD has mild luminal i rregularities with 30% stenosis in the Proximal LAD - 80% stenosis in the Distal Circumflex, small vessel - 30% stenosis in the 1st Ma rginal -The RCA has mild luminal ir regularities. RECOMMENDATIONS & PLAN * Medical Rx - Lesion not suitable for in tervention Consultants Encounter Notes Consults from Jeovanny De Leon MD (Cardiovascular Disease) Diet / Activity / Follow-Up After Discharge Orders and I nstructions Cardiac diet: - make food choices that ar e considered heart healthy - eat more fresh fruits and vegetables: - aim for two or more servi ngs of fruit each day - eat three or more serving s of vegetables each day - eat whole grains. - limit sodium (salt): - do not add extra salt at the table - omit or reduce salt in ba bairon and cooking - eat more foods you make at home - eat more chicken, fish, an d lean pork, eat less red meat - bake, grill, or broil meat s, limit fried foods - eat two to three servings of low-fat or fat-free dairy foods each day - use these sparingly: veget able oil and spray, tub or squeeze margarine, low or non-fat salad dressing sparingly - read labels to avoid trans -fats Caring for your wrist wound or incision: -Keep your arm raised when you are resting to help keep the swelling down. -Do not soak the wrist of yo ur affected arm in water for four days a fter the procedure or until the area has healed. -Do not strain your affected arm or lift anything that weighs more than five pounds for 24 hours. If your wrist begins to blee d: -Stop what you are doing. -Lie down. -Apply firm pressure to slig htly above the puncture site. -if bleeding does not stop w ith continuous pressure, CALL 911 EXTENDED HOLTER 14 days Monitor your wound site julien ly for: - increased pain or swellin g - signs of infection, includ ing: redness, increased warmth, tenderness, bleeding or oozing - fever greater than 101 deg sonia Fahrenheit Moving around after your an giogram: (wrist/arm site) - in the first 24 hours: be gin low level activities - couch, bed, recliner, to and from bathroom, minimal stairs if necessary - gradually increase your ac tivity - do not bend or twist your wrist - do not strain you affected arm or lift anything that weighs more than 5 pounds for 24 hours - keep your arm raised when you are resting to help keep the swelling down - do not soak the wrist of y our affected arm for four days after the procedure or until the area has healed - avoid: bathtub, whirlpool, swimming pool or dishwater - if you have also had a hea rt attack, you should wait 2 weeks, and be able to climb 2 flights of stairs without chest pain or significant shortness of breath, before you resume your normal sexual activity Patient Cardiology Follow U p Instructions Please follow up in 4-6 wee ks in cardiology clinic with first available provider, at [facility] (phone: [phone] ext. [phone]). Please call to schedule a n appointment, otherwise an communication and outreach manager will call you in several days to assist you. When to follow up: 4 to 6 w eeks When is patient being disch arged?: Today Primary Care Provider kimberly w up appointment(s) Alejandro Cordova MD When to follow up: 1 to 5 d ays Primary Care Provider kimberly w up appointment(s) Alejandro Cordova MD When to follow up: 1 to 5 d ays Primary Care Provider kimberly w up appointment(s) Alejandro Cordova MD When to follow up: 1 to 5 d ays When is patient being disch arged?: Today Up as tolerated It is important to slowly r eturn to your regular level of activity. Start with 5-10 minutes at one time and slowly build to 30 minutes at one time. Save your energy by spreading out activities that make you tired. Rest as needed. When should you be concerne d? Your health care provider i s: Alejandro Cordova MD Please call your health care provider if: - you feel you are getting w orse or having an increase in problems - fever greater than 101 deg sonia - increasing shortness of br eath - any signs of infection (in creasing redness, swelling, tenderness, warmth, change in appearance, or increased drainage) - blood in your urine or sto ol - coughing or vomiting blood - nausea (upset stomach) and vomiting and/or diarrhea that will not stop - severe pain that is not re lieved by medicine, rest or ice Call 911 if you feel you are having a medical emergency. When should you be concerne d? (after an angiogram or procedure) Your health care provider i s Alejandro Cordova MD Please call your health care provider if you have any of the following: - chest pain or discomfort s imilar to before your angiogram - a tightening, pressure, sq ueezing, or aching in your chest or arms - excessive swelling, extrem e tenderness, pain that will not stop, or signs of bleeding at your wound site - signs of infection (increa sing redness, swelling, tenderness, warmth, change in appearance, or increased drainage) - discolored area at wound s ite becomes hard and painful - numbness, tingling or katz ge in color of affected leg or arm - swollen feet, ankles and l egs more than usual - lightheadedness, dizziness , sweating, fatigue, weakness, loss of energy - fever greater than 101 deg sonia Fahrenheit - trouble breathing, unusual tiredness, decreased ability to exercise - new or worsening shortness of breath - trouble breathing when lyi ng flat - weight gain of 3 pounds in one day - weight gain of 5 pounds in one week If you are not sure about wh at you are feeling or have questions about how you are feeling, stop whatever you are doing and call your clinic, ask to talk to a health care provider Do not try to deny, dismiss or make excuses for early warning signs. Call 911 right away if the signs get worse when you sit down and rest or if you feel you are having a medical emergency FOR EMERGENCY DIAL 911 Why were you at the [facility]? You were in the hospital fo r cardiac evaluation including coronary angiogram and cardiac MRI for palpitations and elevated troponin level. Clinic Request for Cardiolo gy Follow Up Appointment In [place] in one month Type of cardiology follow u p needed: Follow Up Recommended next visit type : In person Cardiology Specialty: Gener al Non-Imaging Services Needed : None Imaging tests needed: None Pending Studies Lab results that may not be resulted at time of discharge: (From admission through now) Start Ordered 03/28/22 1015 LIPID PANEL O NE TIME, TODAY Question: What is the patien t's fasting status? Answer: RANDOM 03/28/22 1010 Total time spent on discharg e coordination: 40 minutes. Patient was seen and examined today. Bill Terry MD Hospitalist, [facility] ? ? [phone] 03/27/2022 Emergency 03/27/2022 Hospital Encounter Makayla Baker M D NSTEMI (non-ST elevated myocardial infa rction) (HC) 03/26/2022 Orders Only <No scans attac hed> 03/26/2022 Orders Only Staff, Other Clinical <No sc ans attached> 03/25/2022 Orders Only Scanner <No scans attac hed> 03/25/2022 Orders Only Scanner <No scans attac hed> 03/25/2022 Nurse Triage Alejandro Cordova MD Fa [facility] Heartbeat (156) 03/18/2022 Office Visit Alejandro Cordova MD Bl ood Pressure 03/18/2022 Travel 02/13/2022 Office Visit Richie Juares DO Blood Pressure (Follow up on blood pressu res. Patient brought home giovanna lester and all medications .) 02/13/2022 Travel 02/12/2022 Telephone Alejandro Cordova MD Bl ood Pressure 02/06/2022 Office Visit Alejandro Cordova MD Bl ood Pressure 02/06/2022 Travel 02/05/2022 Telephone Alejandro Cordova MD Nm gh Blood Pressure from Last 3 Months Immunizations Name Administration [...] 10 days, have you been in contact No / Unsure 04/01/2022 11:13 AM CDT with someone who was confirmed or suspected to have Coronavirus/COVID-19? Obstetrics History Last Filed Vital Signs Vital Sign Reading Time Taken Comments Blood Pressure 117/79 04/01/2022 11:22 AM CDT Pulse 80 04/01/2022 11:22 AM CDT Temperature 36.6 ??C (97.8 ??F) 03/28/2022 3:19 PM CDT Respiratory Rate 12 03/28/2022 3:19 PM CDT Oxygen Saturation 99% 04/01/2022 11:22 AM CDT Inhaled Oxygen Concentration - - Weight 143.3 kg (315 lb 14.4 oz) 04/01/2022 11:22 AM CDT Height 185.4 cm (6' 1) 03/27/2022 12:54 PM CDT Body Mass Index 41.68 03/27/2022 12:54 PM CDT Plan of Treatment Upcoming Encounters Date Type Specialty Care Team Description 05/09/2022 Office Visit Pauline Carey MD [address] [facility] [address] [place] [address] (Wo rk) Health Maintenance Due Date Last Done Comments COVID-19 vaccine series (#1) 1970 Hepatitis C screening for age 1205/10/1990 18-79 Influenza for age 9-49 02/07/2022 Tetanus booster 05/08/2022 05/08/2012, 05/08/2012 Depression screening for age 12+ 12/05/2022 12/05/2021, 06/2020, 11/02/2020, Additional history exists BMI (ht and wt on same day) for 12/27/2022 12/27/2021, 01/09, age 18+ 09/25/2020, Additional history exists Colonoscopy through age 75 12/31/2025 01/01/2016, 6 Lipids for age 45-75 03/28/2027 03/28/2022, 08/21/2020, 07/13/2019, Additional history exists Tdap Completed 05/08/2012 Procedures Procedure Name Priority Date/Time Associated Diagnosis Comme nts LIPID PANEL Today 03/28/2022 4:56 Results for this PM CDT procedure are i n the results section. MR CARDIAC WWO Routine 03/28/2022 4:36 Results fo r this PM CDT procedure are i n the results section. SCAN-CARDIAC STRIP 03/28/2022 3:18 PM CDT CVL CORONARY ANGIOGRAM Routine 03/28/2022 1:21 Cardiovascular Results for this POSS PCI PM CDT symptoms procedure are i n the results section. SCAN-CARDIAC STRIP 03/28/2022 8:07 AM CDT TROPONIN I Early AM 03/28/2022 6:59 Results for this AM CDT procedure are i n the results section. CREATININE Early AM 03/28/2022 6:59 Results for this AM CDT procedure are i n the results section. ELECTROLYTE PANEL Early AM 03/28/2022 6:59 Results for this AM CDT procedure are i n the results section. EKG 12 LEAD Early AM 03/28/2022 5:42 Results for this AM CDT procedure are i n the results section. TROPONIN I Timed 03/28/2022 12:19 Results for this AM CDT procedure are i n the results section. SCAN-CARDIAC STRIP 03/28/2022 12:14 AM CDT SCAN 03/28/2022 12:00 Results for this CORRESP-LABORATORY AM CDT procedure are in RESULTS the results section. SCAN-CARDIAC STRIP 03/27/2022 9:23 PM CDT TROPONIN I Timed 03/27/2022 6:08 Results for this PM CDT procedure are i n the results section. EKG 12 LEAD STAT 03/27/2022 5:45 Results for this PM CDT procedure are i n the results section. CT CARDIAC CORONARY STAT 03/27/2022 1:29 NSTEMI (non-ST Res ults for this ARTERIES DUAL READ PM CDT elevated myocardial pr ocedure are in infarction) (HC) the results section. ECHO COMPLETE WO Routine 03/26/2022 1:07 Elevated tropon in Results for this CONTRAST PM CDT Abnormal heart rhythm proced ure are in the results section. SCAN-ECHOCARDIOGRAM 03/26/2022 12:00 Resu lts for this INTERPRETATION AM CDT procedure are in the results section. SCAN-CT INTERPRETATION 03/25/2022 12:00 AM CDT SCAN-RADIOLOGY REPORT 03/25/2022 12:00 Re sults for this AM CDT procedure are i n the results section. from Last 3 Months Results (ABNORMAL) LIPID PANEL (03/28/2022 4:56 PM CDT) [facility] Method Time Signature CHOLESTEROL,TOTAL 228 (H) 100 - 199 03/28/2022 [facility] mg/dL 5:49 PM CDT [facility] TRIGLYCERIDES 93 <150 03/28/2022 [facility] mg/dL 5:49 PM CDT [facility] HDL CHOLESTEROL 50 >40 mg/dL 03/28/2022 [facility] 5:49 PM CDT [facility] NON-HDL 178 (H) <145 03/28/2022 [facility] CHOLESTEROL mg/dl 5:49 PM CDT [facility] CHOL/HDL RATIO 4.56 (H) <4.50 03/28/2022 [facility] 5:49 PM CDT [facility] LDL CHOLESTEROL 159 (H) <=130 03/28/2022 [facility] mg/dL 5:49 PM CDT [facility] VLDL CHOLESTEROL 19 <=30 03/28/2022 [facility] mg/dL 5:49 PM CDT [facility] PROVIDER ORDERED FASTING 03/28/2022 [facility] STATUS 5:49 PM CDT [facility] Specimen Anatomical Collection Method Collection Time Receive d Time (Source) Location / / Volume Laterality Blood BLOOD SPECIMEN / Diversion Device / 03/28/2022 4:56 PM 03/28/2022 5:13 Unknown Unknown CDT PM CDT Concha Zhou NP CHEMISTRY Performing Organization Address City/State/ZIP Code Phon e Number [facility] [address] [place] [address] LAB[facility] [address] LABORATORY MR CARDIAC [facility] (03/28/2022 4:36 PM CDT) Anatomical Region Laterality Modality HEART, THORAX Magnetic Resonance Specimen (Source) Anatomical Collection Method Collection Time Re ceived Time Location / / Volume Laterality 03/28/2022 3:44 PM CDT Narrative 03/29/2022 9:25 AM CDT ?[facility] ? CMR Report ??MRN: ?[id number] ?Name: ? EVITA BERMEO ?: ?1969-06 ?Scan Date: ?? 2022-03-28 15:44:43 ? Electronically signed by Evita Ngo 09:25:57 VITALS HEIGHT: 73.00 in ?(185.42 cm) WEIGHT: 320.00 lbs ?(145.15 kgs) BSA: 2.63 m^2 FINAL IMPRESSION 1. Normal left ventricular systolic func tion, LVEF 69%. ?? A. Normal LV volumes and mass. 2. Normal right ventricular function RVE F 60%. ?? A. Normal RV volume and wall motion. 3. No evidence of myocardial infarction 4. No evidence of infiltrative cardiomyo quirino (Normal ECV = 22%) 5. Bicuspid aortic valve (R-L cusps fusi on - type 1) with mild aortic regurgitation (aortic regurgitant volume 6 ml and regurgitant fraction 6 % ) 6. Dilated ascending aorta measuring 43 x 41 mm. 7. Normal lungs and no pleural effusion 8. Normal pericardium. SUMMARY (No source of an elevated troponin ident ified). LEFT VENTRICLE: Quantitative LVEF 69 %. LV systolic function is normal. LV cavity size is normal. There is mild LV hypertrophy. There is no LV mass/thrombu s. VIABILITY: Hyperenhancement is normal. RIGHT VENTRICLE: Quantitative RVEF 60 %. RV systolic function is normal. RV cavity size is normal. There is no RV mass/thrombus. LV/RV SEPTUM: The ventricular septum is intact. LEFT ATRIUM: LA cavity size is normal. RIGHT ATRIUM: RA cavity size is normal. PERICARDIUM: Pericardium is normal. Ther e is no pericardial effusion. PLEURAL EFFUSION: There is no pleural ef fusion. AORTIC VALVE: Aortic valve is bicuspid. There is mild-moderate aortic regurgitation. Aortic regurgitant volume 6 ml. Aortic regurgitant fraction 6 %. There i s no aortic stenosis. MITRAL VALVE: Mitral valve leaflets are normal. The mitral valve annulus is hypoplastic. There is no mitral regurgitation. There is no mitral stenos is. TRICUSPID VALVE: There is no tricuspid r egurgitation. There is no tricuspid stenosis. PULMONIC VALVE: There is no pulmonic reg urgitation. AORTIC ROOT: The aortic root is normal. OTHER FINDINGS: Aorta: Left side aortic arch with normal great arteries branching pattern. ?- Ascending aorta: 43 x 41 mm (Axi al images) ?- Descending aorta: 27 x 23 mm CORE EXAM MEASUREMENTS -------- ?VOLUMETRIC ANALYSIS ? . . ? LV ?? Refe rence ?? RV ?? Reference ?? +------+ +------+ +- -----+ + EDV ?? ml ?224 ??(117-2 00) ??210 ??(116-216) ? ml/m^2 ? 85 ??(64- 99) ? 80 ??(62-108) ?? ESV ?? ml ? 70 ??(31-76 ) ? 83 ??(29-89) ? ml/m^2 ? 27 ??(17- 38) ? 32 ??(16-45) ?? CO ?? L/min ? 9.39 ? 7.75 ? L/min/m^2 3.58 ? 2.95 ? MASS g ?171 ??(108-1 85) ? g/m^2 ? 65 ??(58- 91) ? SV ?? ml ?154 ??(77-13 3) ?127 ??(73-141) ? ml/m^2 ? 59 ??(42- 66) ? 48 ??(39-71) ?? EF ?? % ? 69 ??(58-7 5) ? 60 ??(52-77) ?? '------+ +------+ +- -----+ ' ?CARDIAC OUTPUT HR: ??61 BPM ?LA DIMENSIONS (LV SYSTOLE) ?VOLUME: ??69 ml ?VOLUME NORMALIZED: ??26.3 ml /m^2 ?RA DIMENSIONS (RV SYSTOLE) ?VOLUME: ??116 ml ?VOLUME NORMALIZED: ??44.1 ml /m^2 ?EXTRACELLULAR VOLUME MEASUREMENT ?PRE-CONTRAST T1 MYOCARDIUM: ??1007 msec ?ECV: ??21 % 17 SEGMENT -------- . . Segments ? Wall Motion ?? Hyperenhancement Stress Perfusion Interpretation + + + + +----- + Base Anterior ? Normal/Hyper None ? Normal ? Base Anteroseptal ?? Normal/Hyper N one ? Normal ? Base Inferoseptal ?? Normal/Hyper N one ? Normal ? Base Inferior ? Normal/Hyper None ? Normal ? Base Inferolateral Normal/Hyper No ne ? Normal ? Base Anterolateral Normal/Hyper No ne ? Normal ? Mid Anterior ? Normal/Hyper None ? Normal ? Mid Anteroseptal ?? Normal/Hyper N one ? Normal ? Mid Inferoseptal ?? Normal/Hyper N one ? Normal ? Mid Inferior ? Normal/Hyper None ? Normal ? Mid Inferolateral ?? Normal/Hyper N one ? Normal ? Mid Anterolateral ?? Normal/Hyper N one ? Normal ? Apical Anterior ? Normal/Hyper None ? Normal ? Apical Septal ? Normal/Hyper None ? Normal ? Apical Inferior ? Normal/Hyper None ? Normal ? Apical Lateral ? Normal/Hyper None ? Normal ? [place] ? Normal/Hyp er None ? Normal ? + + + + +----- + RV Segments ? Wall Motion ? ? Hyperenhancement Stress Perfusion Interpretation + + + + +----- + RV Basal Anterior ? RV Basal Inferior ? RV Mid ? RV Apical ? ' + + + +----- ' ?FINDINGS ?LV SCAR SIZE (17 SEGMENT): ? ?0 % SCAN INFO GENERAL -------- ?SCANNER ?OPERATOR TECHNICIAN: ??SIEMENS ?MODEL: ??Aera ?CONTRAST AGENT ?TYPE: ??Gadavist ?GD CONCENTRATION: ??0.5 M ?VOLUME ADMINISTERED: ??17.5 ml ?DOSAGE: ??0.06 mmol/kg ?SETUP ?REASON(S) FOR SCAN: ??Ischem ia eval: preop ?REFERRING PHYSICIAN: ??MANDY TERI JUAN ?ATTENDING PHYSICIAN: ??WILBERT TERRY BILLING Patient Account ?[id number] Report generated by danielle Smith of [employer] Procedure Note Evita Ngo MD - 03/29/2022 [place] CMR Report Name: EVITA BERMEO : 1970 Scan Date: 2022-03-28 15:44:43 Electronically signed by Evita Ngo 09:25:57 VITALS HEIGHT: 73.00 in (185.42 cm) WEIGHT: 320.00 lbs (145.15 kgs) BSA: 2.63 m^2 FINAL IMPRESSION 1. Normal left ventricular systolic func tion, LVEF 69%. A. Normal LV volumes and mass. 2. Normal right ventricular function RVE F 60%. A. Normal RV volume and wall motion. 3. No evidence of myocardial infarction 4. No evidence of infiltrative cardiomyo quirino (Normal ECV = 22%) 5. Bicuspid aortic valve (R-L cusps fusi on - type 1) with mild aortic regurgitation (aortic regurgitant volume 6 ml and regurgitant fraction 6 % ) 6. Dilated ascending aorta measuring 43 x 41 mm. 7. Normal lungs and no pleural effusion 8. Normal pericardium. SUMMARY (No source of an elevated troponin ident ified). LEFT VENTRICLE: Quantitative LVEF 69 %. LV systolic function is normal. LV cavity size is normal. There is mild LV hypertrophy. There is no LV mass/thrombu s. VIABILITY: Hyperenhancement is normal. RIGHT VENTRICLE: Quantitative RVEF 60 %. RV systolic function is normal. RV cavity size is normal. There is no RV mass/thrombus. LV/RV SEPTUM: The ventricular septum is intact. LEFT ATRIUM: LA cavity size is normal. RIGHT ATRIUM: RA cavity size is normal. PERICARDIUM: Pericardium is normal. Ther e is no pericardial effusion. PLEURAL EFFUSION: There is no pleural ef fusion. AORTIC VALVE: Aortic valve is bicuspid. There is mild-moderate aortic regurgitation. Aortic regurgitant volume 6 ml. Aortic regurgitant fraction 6 %. There i s no aortic stenosis. MITRAL VALVE: Mitral valve leaflets are normal. The mitral valve annulus is hypoplastic. There is no mitral regurgitation. There is no mitral stenos is. TRICUSPID VALVE: There is no tricuspid r egurgitation. There is no tricuspid stenosis. PULMONIC VALVE: There is no pulmonic reg urgitation. AORTIC ROOT: The aortic root is normal. OTHER FINDINGS: Aorta: Left side aortic arch with normal great arteries branching pattern. - Ascending aorta: 43 x 41 mm (Axial im ages) - Descending aorta: 27 x 23 mm CORE EXAM MEASUREMENTS -------- VOLUMETRIC ANALYSIS ------- . . LV Reference RV Reference +------+ +------+ +- -----+ + EDV ml 224 (117-200) 210 (11 6-216) ml/m^2 85 (64-99) 80 (62-108 ) ESV ml 70 (31-76) 83 (29-89) ml/m^2 27 (17-38) 32 (16-45) CO L/min 9.39 7.75 L/min/m^2 3.58 2.95 MASS g 171 (108-185) g/m^2 65 (58-91) SV ml 154 (77-133) 127 (73-1 41) ml/m^2 59 (42-66) 48 (39-71) EF % 69 (58-75) 60 (52-77) '------+ +------+ +- -----+ ' CARDIAC OUTPUT HR: 61 BPM LA DIMENSIONS (LV SYSTOLE) ------- VOLUME: 69 ml VOLUME NORMALIZED: 26.3 ml/m^2 RA DIMENSIONS (RV SYSTOLE) ------- VOLUME: 116 ml VOLUME NORMALIZED: 44.1 ml/m^2 EXTRACELLULAR VOLUME MEASUREMENT ------- PRE-CONTRAST T1 MYOCARDIUM: 1007 msec ECV: 21 % 17 SEGMENT -------- . . Segments Wall Motion Hyperenhancem ent Stress Perfusion Interpretation + + + + +----- + Base Anterior Normal/Hyper None Normal Base Anteroseptal Normal/Hyper Non e Normal Base Inferoseptal Normal/Hyper Non e Normal Base Inferior Normal/Hyper None Normal Base Inferolateral Normal/Hyper No ne Normal Base Anterolateral Normal/Hyper No ne Normal Mid Anterior Normal/Hyper None Normal Mid Anteroseptal Normal/Hyper None Normal Mid Inferoseptal Normal/Hyper None Normal Mid Inferior Normal/Hyper None Normal Mid Inferolateral Normal/Hyper Non e Normal Mid Anterolateral Normal/Hyper Non e Normal Apical Anterior Normal/Hyper None Normal Apical Septal Normal/Hyper None Normal Apical Inferior Normal/Hyper None Normal Apical Lateral Normal/Hyper None Normal [place] Normal/Hyper None Normal + + + + +----- + RV Segments Wall Motion Hyperenhan cement Stress Perfusion Interpretation + + + + +----- + RV Basal Anterior RV Basal Inferior RV Mid RV Apical ' + + + +----- ' FINDINGS ------- LV SCAR SIZE (17 SEGMENT): 0 % SCAN INFO GENERAL -------- SCANNER ------- OPERATOR TECHNICIAN: SIEMENS MODEL: Aera CONTRAST AGENT ------- TYPE: Gadavist GD CONCENTRATION: 0.5 M VOLUME ADMINISTERED: 17.5 ml DOSAGE: 0.06 mmol/kg SETUP ------- REASON(S) FOR SCAN: Ischemia eval: edith du REFERRING PHYSICIAN: MANDY HONG ATTENDING PHYSICIAN: BILL TERRY BILLRENO Patient Account [id number] Report generated by danielle Smith t of [employer] Concha Zhou NP MR SCAN-CARDIAC STRIP (03/28/2022 3:18 PM CDT) Narrative This result has an attachment that is no t available. Scanner OTHER CVL CORONARY ANGIOGRAM POSS PCI (03/28/2022 1:21 PM CDT) Anatomical Region Laterality Modality Other Specimen (Source) Anatomical Collection Method Collection Time Re ceived Time Location / / Volume Laterality 03/28/2022 1:21 PM CDT Narrative This result has an attachment that is no t available. Transcriptions Evert Smith MD - 03/28/2022 1:47 PM CDT [facility] at [facility] Cardiac Catheterization Report Name: EVITA BERMEO Event Date: 03/10 13:21 [employer] ID #: [id number] MAHESH #: [id number] Diagnostic Physician: Segundo COLIN [facility] Referring Physician: Alejandro Cordova Date: 1970 Gender: Male Age: 51 Summary/Conclusions PRESENTATION / INDICATIONS * Urgent * NonSTEMI VASCULAR ACCESS * Using ultrasound guidance and a percut aneous technique, the right radial artery was accessed. Ultrasound was used to confirm vessel patency, localizing needle into the lumen of the vessel. An image was saved for the medical record. DIAGNOSTIC SUMMARY ? The LMCA has mild luminal irregulariti es. ? The LAD has mild luminal irregularitie s with 30% stenosis in the Proximal LAD ? 80% stenosis in the Distal Circumflex, small vessel ? 30% stenosis in the 1st Marginal ? The RCA has mild luminal irregularitie s. RECOMMENDATIONS & PLAN * Medical Rx - Lesion not suitable for i ntervention Consent & Bylas Protocol The risks, benefits, and alternatives of the procedure were discussed with the patient and written informed consent was obtained. Bylas protocol was followed. TIME OU T conducted just prior to starting procedure confirmed patient identity, site/side, procedure, patient position, and availability of correct equipment and implants (if applicable). Staff Name Title Segundo SMITH Diagnostic Cardiologis t Suha Rawls RN Nurse Viviana Cruz CVT Scrub [place] Kim DISPLAY MANAGER Monitor Delicia Patrick Fellow Sumeet Nguyen RTR Monitor Procedures ? Ultrasound Guided Vascular Access ? Coronary Angiogram Diagnostic Findings * Left Main Coronary Artery ? The LMCA has mild luminal irregulariti es. ? 10% stenosis in the LMCA. * Left Anterior Descending ? The LAD has mild luminal irregularitie s. ? 30% stenosis in the Proximal LAD. * Circumflex ? 80% stenosis in the Distal Circumflex. ? 30% stenosis in the 1st Marginal. * Right Coronary Artery ? The RCA has mild luminal irregularitie s. ? 20% stenosis in the Proximal RCA. Lesion Information Lesion # Vessel Segment Lesion Length [place] Details Proximal LAD 1st Marginal Distal Circumflex Proximal RCA LMCA Hemodynamics State: Baseline Pressures (mmHg) Site Systolic Diastolic End Diastolic A Wave V Wave Mean AO 102 68 78 Procedure Details Estimated Blood Loss: < 30 ml Specimen Collected: None Level of Sedation Achieved: Moderate Procedure Start: 13:21 Procedure End: 13:37 Procedure Time: 16 min Fluoroscopy Time: 2.8 min Cumulative Air Kerma: 731 mGy DAP: 3909 uGy/M2 Contrast: Omnipaque (low-osmolar), 30 ml Physiologic Data Actual VO2: 260.5 Weight: 144.7 kg BSA: 2.62 m2 Vascular Access Time Access Sheath Size 13:22 Right Radial Artery, sheath insert ed Complications ? No Complications Medications Ordered and Administered Start Time Stop Time Medication Dose Uni ts Route Ordered By Given By 13:20 Heparin 7000 units IV Segundo Smith Heather RN 13:20 Versed 1 mg IV Segundo Smith Heather RN 13:22 1% Lidocaine 2 ml Subcut Segundo Smith Khalid Hamid 13:23 Nitroglycerin 400 mcg IA Segundo Smith Khalid Hamid 13:26 Fentanyl 50 mcg IV Segundo Smith as Suha Rawls RN 13:34 Versed 1 mg IV Segundo Smith Heather RN 13:34 Fentanyl 50 mcg IV Segundo Smith as Suha Rawls RN 13:37 Nitroglycerin 200 mcg IA Delicia Patrick Khalid Hamid I personally monitored the patient?s con scious sedation during the procedure. Conscious sedation starts with the first sedation medication dose of Fentanyl or Versed and ends when the procedure is completed, the patient is stable for recovery status, and the physician or other qualified health assistant child care teacher providing the sedation ends personal continuous [id number]-zi-[id number] time with the patient. The medications listed above were verbal ly ordered by me and read back to me as documented above. Refer to the procedure log report for ad ditional case details. electronically signed on 03/28/2022 1:4 7:38 PM with status of Final Ky Smith MD [facility] [address] [place] [address] (p) [phone](f) Provider Referring CV IMAGING SCAN-CARDIAC STRIP (03/28/2022 8:07 AM CDT) Narrative This result has an attachment that is no t available. Scanner OTHER (ABNORMAL) TROPONIN I Quant (03/28/2022 6:59 AM CDT)Only the most recent of3 resultswithin the time period is included. P athologist Signature TROPONIN I 1.103 (H) <0.034 03/28/2022 [facility] ng/mL 8:47 AM CDT LABORATORY-CENT RAL LABORATORY Specimen Anatomical Collection Method / Collection Time Recei david Time (Source) Location / Volume Laterality Blood BLOOD SPECIMEN / Venipuncture / 03/28/2022 6:59 2021 7:36 Unknown Unknown AM CDT AM CDT Bran Cain MD CHEMISTRY Performing Organization Address City/State/ZIP Code Phon e Number [facility] [address] [place] [address] LABORATORY-CENTRAL 2000 LABORATORY Creatinine AM (03/28/2022 6:59 AM CDT) athologist Signature CREATININE 1.01 0.72 - 1.25 03/28/2022 [facility] mg/dL 8:37 AM CDT LABORATORY-CENT RAL LABORATORY eGFR >90 >90 03/28/2022 [facility] mL/min/1.73 8:37 AM CDT LABORATORY-CENT m2 RAL LABORATORY Comment: As of 2021, eGFR is calcu lated by the CKD-EPI creatinine equation without race adjustment. eGFR can be inf luenced by muscle mass, exercise, and diet. The reported eGFR is an estimation only and is only applicable if the renal function is stable. Specimen Anatomical Collection Method / Collection Time Recei david Time (Source) Location / Volume Laterality Blood BLOOD SPECIMEN / Venipuncture / 03/28/2022 6:59 2021 7:36 Unknown Unknown AM CDT AM CDT Bran Cain MD CHEMISTRY Performing Organization Address City/[facility] Phon e Number [facility] [address] [place] [address] [place] [address] LABORATORY-CENTRAL 2000 LABORATORY Electrolyte panel AM (03/28/2022 6:59 AM CDT) athologist Signature SODIUM 137 135 - 145 03/28/2022 [facility] mmol/L 8:35 AM CDT LABORATORY-CENTR AL LABORATORY POTASSIUM 4.2 3.5 - 5.0 03/28/2022 [facility] mmol/L 8:35 AM CDT LABORATORY-CENTR AL LABORATORY CHLORIDE 103 98 - 110 03/28/2022 [facility] mmol/L 8:35 AM CDT LABORATORY-CENTR AL LABORATORY CO2,TOTAL 28 21 - 31 03/28/2022 [facility] mmol/L 8:35 AM CDT LABORATORY-CENTR AL LABORATORY ANION GAP 6 5 - 18 03/28/2022 [facility] 8:35 AM CDT LABORATORY-CENTR AL LABORATORY Specimen Anatomical Collection Method / Collection Time Recei david Time (Source) Location / Volume Laterality Blood BLOOD SPECIMEN / Venipuncture / 03/28/2022 6:59 2021 7:36 Unknown Unknown AM CDT AM CDT Bran Cain MD CHEMISTRY Performing Organization Address City/[facility] Phon e Number [facility] [address] [place] [address] [place] [address] LABORATORY-CENTRAL 2000 LABORATORY ECG AM (03/28/2022 5:42 AM CDT)Only the most recent of2 resultswithin the time period is included. Component Value Ref Range Test Analysis Performed Pathologis t Method Time At Signature Interpretation Sinus bradycardia BEYOND NOW Otherwise normal ECG When compared with ECG of 27-MAR-2022 17:45, Nonspecific T wave abnormality has repla edson inverted T waves in Inferior leads Ventricular Rate 58 BPM BEYOND NOW Atrial Rate 58 BPM BEYOND NOW P-R Interval 182 ms BEYOND NOW QRS Duration 94 ms BEYOND NOW QT 430 ms BEYOND NOW QTc 422 ms BEYOND NOW P [place] 31 degrees BEYOND NOW R [place] -16 degrees BEYOND NOW T [place] 18 degrees BEYOND NOW Specimen Anatomical Collection Method Collection Time Receive d Time (Source) Location / / Volume Laterality 03/28/2022 5:42 AM 7:54 CDT PM CDT Narrative BEYOND NOW - 03/28/2022 7:54 PM CDT Test Indication: NORMAL Bran Cain MD EKG ORD Performing Organization Address City/State/ZIP Code Phon e Number BEYOND NOW [place], [place] SCAN-CARDIAC STRIP (03/28/2022 12:14 AM CDT) Narrative This result has an attachment that is no t available. Scanner OTHER SCAN CORRESP-LABORATORY RESULTS (03/28/2022 12:00 AM CDT) Narrative 03/28/2022 12:00 AM CDT This result has an attachment that is no t available. Ordered by an unspecified provider. Other Clinical Staff OTHER SCAN-CARDIAC STRIP (03/27/2022 9:23 PM CDT) Narrative This result has an attachment that is no t available. Scanner OTHER CT CARDIAC CORONARY ARTERIES DUAL READ (03/27/2022 1:29 PM CDT) Anatomical Region Laterality Modality HEART Computed Tomography Specimen (Source) Anatomical Collection Method Collection Time Re ceived Time Location / / Volume Laterality 03/27/2022 1:33 PM CDT Impressions 03/27/2022 4:20 PM CDT ??No noncardiovascular abnormality. Please note that all CT scans at this [facility] use dose modulation, iterative reconstruction and/or weight-b ased dosing when appropriate to reduce radiation dose to as low as reaso nably achievable. ?? Mariusz Pacheco M.D. Diagnostic/Musculoskeletal Radiologist [employer] [facility] [email or web address] / Narrative 03/27/2022 4:20 PM CDT ?[facility] at [facility] ? Cardiac CT Report ??MRN: ?[id number] ?Name: ? EVITA BERMEO ?: ?1969-06 ?Scan Date: ?? 2022-03-27 13:33:24 ? Electronically signed by Oralia Gibson 14:31:41 VITALS HEIGHT: 73.00 in ?(185.42 cm) WEIGHT: 319.00 lbs ?(144.70 kgs) BSA: 2.62 m^2 BMI: 42 kg/m^2 BP: 123 / 84 mmHg FINAL IMPRESSION * Technically difficult study in this mo rbidly obese patient who was tachycardiac at the scanner acquisition * 1) Diffuse multivessel coronary atherosc lerosis with intermediate mid LAD stenosis (50-69%) which is likely hemodynamically significant. 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 - Mid and distal RCA have significant mo tion artifact. - Total coronary artery calcium score 12 3. PERRY percentile based on age, gender, and race is 92. 2) Incidental dilation of the ascending thoracic aorta (44 x 45 mm, area index: 8.0 cm2/m). RECOMMENDATIONS: - Acute coronary syndro me is likely. - Scan findings suggest patient will lik lavell benefit from aggressive management of risk factors. - Cardiology consultation for management of coronary artery disease is strongly recommended. STUDY QUALITY: Study quality is adequate . Misalignment(s) due to patient breathing. CAD-RADS: CAD-RADS Classification 3 (50- 69% stenosis). CALCIUM SCORING: Total coronary artery c alcium score 123. PERRY percentile based on age, gender, and race is 92. DOMINANCE: Right dominant coronary arter y system. LM: The LM is normal. LAD: The proximal LAD has non-calcified atherosclerosis. ??There is a 50-69% proximal LAD stenosis. ??There is no mid LAD stenosis. There is no distal LAD stenosis. D1: The first diagonal is normal. D2: The second diagonal is normal. LCX: There is no proximal LCx stenosis. ??The mid LCx has non-calcified atherosclerosis. ??There is a 25-49% mid LCx stenosis. ??There is no distal LCx s tenosis. OM1: The first obtuse marginal is normal . OM2: The second obtuse marginal is pauline l. RCA: The proximal RCA has partially calc ified atherosclerosis. ??There is a 25-49% proximal RCA stenosis. Mid RCA non-diagnostic reason(s): excessive coronary motion. ??The distal RCA has non-calcified atherosclerosis. There is a 25-49% distal RCA stenosis. RIGHT PDA: The right PDA has non-calcifi ed atherosclerosis. There is a <25% right PDA stenosis. RIGHT PLB: The right posterolateral bran ch is normal. OTHER FINDINGS: - Normal caliber of the aortic root. Incidental dilation of the ascending thoracic aorta (44 x 45 mm), area index: 8.0 cm2/m. - No left atrial or left atrial appendag e thrombus. Normal pulmonary venous return. - Normal pericardial thickness without e ffusion. CALCIUM SCORING TABLE . . ? Number of Lesions Pattern of Calcium Volume Total Score +-------+ + ---------+--------+ + LM ? 0 ? 0 LAD ? 0 ?33 LCx ? 0 ?11 RCA ? 0 ?79 Ramus ? 0 ? 0 '-------+ + ---------+--------+ ' SCAN INFO TEST TYPE: ??Calcium score, Coronary CT Angiography SCANNER OPERATOR TECHNICIAN: ??SIEMENS SCANNER MODEL: ??Outernet DOSE REDUCTION ALGORITHM: ??Helical with dose modulation PHASE UNITS: ??ms START PHASE: ??280 ms END PHASE: ??350 ms EKG GATED: ??Yes PRE-CONTRAST: ??Yes POST-CONTRAST: ??Yes 3D RECONSTRUCTION: ??Yes PACEMAKER ?DEVICE: ??No GENERAL ?CONTRAST AGENT ?CONTRAST AGENT USED?: ??Yes ?TYPE: ??Omnipaque 350 ?DOSE: ??140 ml ?RATE: ??8.5 ml/s ?ROUTE: ??IV ?ARM: ??Right ?BOLUS TECHNIQUE: ??Biphasic ?ADVERSE REACTION: ??No ?SERUM CREATININE: ??0.9 mg/d L ?GFR: ??95.33 ml/min/1.73m^2 ?CREATININE DATE: ??2022-03-09 00:00:00 ?CT CONTRAST REACTION: ??None ?MEDICATION ADMINISTERED DURING SCA N ?TYPE: ??Nitroglycerin, subli ngual, B-Blockers ?NITROGLYCERIN, TOTAL DOSE: ? ?0.8 mg ?B-BERNICE TYPE: ??Oral, IV ?B-BERNICE NAME, ORAL: ??Meto prolol tartrate ?B-BERNICE NAME, IV: ??Metopr olol tartrate ?B-BLOCKERS, ORAL DOSE: ??100 mg ?B-BLOCKERS, IV DOSE: ??10 mg ?NUMBER OF DOSES: ??2 ?RADIATION DOSE ?KV: ??120 ?SETUP ?PATIENT TYPE: ??Outpatient ?REASON(S) FOR SCAN: ??Chest pain ?REFERRING PHYSICIAN: ??MAKAYLA BAKER ?ATTENDING PHYSICIAN: ??MAKAYLA BAKER ?TECHNOLOGIST: ??Juan Pablo Rangel BILLING Patient Account ?[id number] ICD10 Codes ?I21.4 Report generated by danielle Smith of [employer] For Patients: As a result of the ntury Cures Act, medical imaging exams and procedure reports are released immediately into your electronic medical record. ??You may view this repo rt before your referring provider. ?? If you have questions, please contact [facility] health care provider. OVER-READ ??OVER-READ ??OVER-READ OVER-READ: DETAILED RADIOLOGY EXTRACARDI AC OVER-READ OF CARDIAC CT, 03/27/2022 COMPARISON: ??CT angiogram chest 12/28/19 22. TECHNIQUE: ??Please see cardiology repor t for technical information. ??140 mL Omnipaque-350 intravenous contrast. ? ? This exam is being performed in conjunct ion with the services provided by the [facility] ([facility]). CLINICAL HISTORY: ??NSTEMI. ??Cardiac ov er-read. ?? FINDINGS: ??Included lungs are unremarka ble. ??No lymphadenopathy in the included chest. ?? Makayla Baker MD CT ECHO COMPLETE WO CONTRAST (03/26/2022 1:07 PM CDT) P athologist Signature AORTIC VALVE 10 mmHg MEAN PG EJECTION 75 % FRACTION PEAK TR 2.4 m/s VELOCITY LVEDD 3.9 cm Anatomical Region Laterality Modality HEART Ultrasound Specimen (Source) Anatomical Collection Method Collection Time Re ceived Time Location / / Volume Laterality 03/26/2022 12:23 PM CDT Narrative 03/26/2022 2:48 PM CDT ECHOCARDIOGRAM EVITA BERMEO ? Accessi on#: ?? [id number] : ?1970 51 years Study Date: ?? 03/26/2022 12:23:24 PM Gender: M ?BP: ? 130/86 mmHg Height: 198.00 cm ?BSA: ?2.75 m? ?? Weight: 145.00 kg ?Tech: ? MJW ? Referring MD: MAKAYLA BAKER Site: ? [facility] Reading Location: [facility] Procedure: 2D, Color Doppler and Spectra l Doppler. Indication for study: Elevated troponin [R77.8 (ICD-10-CM)] Abnormal heart rhythm [I49.9 (ICD-10-CM) ] Cardiac Rhythm: Regular.Study quality: F air. Final Impressions: 1. Normal left ventricular size, modera tely increased wall thickness, hyperdynamic global systolic function, calculated EF of 75 %. 2. Right ventricular cavity size is nor mal, global systolic RV function is normal. 3. Normal left atrium size. 4. There is a calcified raphe (RCC and LCC), bicuspid aortic valve, no stenosis and mild to moderate regurgitation. 5. VC width 0.43cm. 6. The mitral valve is normal, trace mi tral regurgitation. 7. Tricuspid valve is normal. 8. 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 9. Normal estimated pulmonary pressures by tricuspid regurgitation velocity and right atrial pressure (23 mmHg plus RAP). 10. The aortic sinus is dilated with a m aximal diameter of 3.8 cm. 11. No pericardial effusion. Chamber Sizes and Function Normal left ventricular size, moderately increased wall thickness, hyperdynamic global systolic function, calculated EF of 75 %. Left atrial size is normal. Right ventricular cavity size is normal, glob al systolic RV function is normal. RV wa ll thickness is normal. The right atrium is normal. Right atrial volume index is 6 ml/m? ??. Right atrial area is 10 cm? ??. The pulmonary artery is of normal siz e and origin. The sinus of Valsalva is d ilated. The ascending aorta is dilated. Valves, RV Pressures and Diastolic Funct ion The aortic valve is Calcified raphe (RCC and LCC), bicuspid aortic valve, no stenosis and mild to moderate regurgitation. VC width 0.43cm. The mitral valve is normal in structure, trace mitral regurgita tion. Indeterminate pattern of LV diasto lic filling. The tricuspid valve is normal in structure. Tricuspid regurgitation is trace regurgitation. The tricuspid regurgitant velocity is 2.4 m/s, the estima roseann right ventricular systolic pressure is 23 mmHg plus right atrial pressure. There is normal estimated pulmonary pressure by tricuspid regurgitation velocity and right atrial pressure. The pulmonic valve is normal. No pulmonary regurgitation. Masses, Effusion, Shunts There is no pericardial effusion. The in ferior vena cava is normal sized, respiratory size variation greater than 50%. No left to right shunting was detected by limited color flow Doppler interrogation of the interatrial septum. MEASUREMENTS AND CALCULATIONS 2-D Measurements and LV Function: LVID (d) 3.9 cm Planimetered EF 75 % LVID (s) 2.3 cm LV FS% (2D) ? 42 % IVS (d) ??1.5 cm LVOT diameter ?? 2.4 cm LVPW (d) 1.6 cm HR ?7 9 bpm Ao Sinus 3.8 cm LA Vol index ?15 ml/ m2 Asc Ao ?? 4.5 cm RA Vol index ?6 ml/ m2 LA ? 4.5 cm RA area ? 1 0 cm?RV Max 4C (d) ?? 3.0 cm Diastology: Mitral ?Tissue Doppler ?Pulmonary veins E Peak 1.0 m/s ??e', Septum ? 0.07 m /s Pulm s ?53.4 cm/s A Peak 0.8 m/s ??e', Lateral ?0.10 m /s Pulm d ?38.0 cm/s E/A ?1.2 ?E/e' Average ?? 12. 02 ?Pulm s/d ratio ??1.41 DT ? 236 msec IVRT ?? 88 msec Aortic Valve: Vmax ? 2.0 m/s ??FLACO (V) ?? 3.17 cm? AI P 1/2 517 msec VTI ?0.40 m ?? FLACO (I ) ?? 3.03 cm? ?? LVOT V max ? 1.4 m/s ??Max PG ?17 mmHg LVOT VTI ? 0.26 m ?? Mean PG ? ? 10 mmHg SV ? 120 ml ?? Dim In dex 0.65 SV index ? 44 ml/m? ?? CO ?9.5 l/min AV Ejection Time 0.28 sec CI ? 3.4 l/min/m? ?? AV Flow Rate ? 502 ml/s Mitral Valve: MVA ?3.2 cm? ?? MV P 1/2 68 msec Tricuspid Valve and estimated PA pressur es: TR Vmax 2.4 m/s TAPSE 3.0 cm TR maxG 23 mmHg . This study was interpreted by an [facility] redited facility. CC: Med/Surg - IP [facility] [place]. ??Final ?? Procedure Note Ragini Villalobos, [facility] - 03/26/2022Formatt ing of this note might be different from the original. ECHOCARDIOGRAM EVITA BERMEO : 1970 51 years Study Date: 03/09 12:23:24 PM Gender: M BP: 130/86 mmHg Height: 198.00 cm BSA: 2.75 m? ?? Weight: 145.00 kg Tech: KAVYA Referring MD: MAKAYLA BAKER Site: [facility] Reading Location: [facility] Procedure: 2D, Color Doppler and Spectra l Doppler. Indication for study: Elevated troponin [R77.8 (ICD-10-CM)] Abnormal heart rhythm [I49.9 (ICD-10-CM) ] Cardiac Rhythm: Regular.Study quality: F air. Final Impressions: 1. Normal left ventricular size, modera tely increased wall thickness, hyperdynamic global systolic function, calculated EF of 75 %. 2. Right ventricular cavity size is nor mal, global systolic RV function is normal. 3. Normal left atrium size. 4. There is a calcified raphe (RCC and LCC), bicuspid aortic valve, no stenosis and mild to moderate regurgitation. 5. VC width 0.43cm. 6. The mitral valve is normal, trace mi tral regurgitation. 7. Tricuspid valve is normal. 8. 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 9. Normal estimated pulmonary pressures by tricuspid regurgitation velocity and right atrial pressure (23 mmHg plus RAP). 10. The aortic sinus is dilated with a m aximal diameter of 3.8 cm. 11. No pericardial effusion. Chamber Sizes and Function Normal left ventricular size, moderately increased wall thickness, hyperdynamic global systolic function, calculated EF of 75 %. Left atrial size is normal. Right ventricular cavity size is normal, global systolic RV function is normal. RV wall thickness is normal. The right atrium is normal. Right atrial volume index is 6 ml/m? ??. Right atrial area is 10 cm? ??. The pulmonary artery is of normal size and origin. The sinus of Valsalva is dilated. The ascending aorta is dilated. Valves, RV Pressures and Diastolic Funct ion The aortic valve is Calcified raphe (RCC and LCC), bicuspid aortic valve, no stenosis and mild to moderate regurgitation. VC width 0.43cm. The mitral valve is normal in structure, trace mitral regurgitation. Indeterminate pattern of LV diastolic fi lling. The tricuspid valve is normal in structure. Tricuspid regurgitation is trace regurgitation. The tricuspid regurgitant velocity is 2.4 m/s, the estimated right ventricular systolic pressure is 23 mmHg plus right atrial pressure. There is normal estimated pulmonary pressure by tricuspid regurgitation velocity and right atrial pressure. The pulmonic valve is normal. No pulmonary regurgitation. Masses, Effusion, Shunts There is no pericardial effusion. The in ferior vena cava is normal sized, respiratory size variation greater than 50%. No left to right shunting was detected by limited color flow Doppler interrogation of the interatrial septum. MEASUREMENTS AND CALCULATIONS 2-D Measurements and LV Function: LVID (d) 3.9 cm Planimetered EF 75 % LVID (s) 2.3 cm LV FS% (2D) 42 % IVS (d) 1.5 cm LVOT diameter 2.4 cm LVPW (d) 1.6 cm HR 79 bpm Ao Sinus 3.8 cm LA Vol index 15 ml/m2 Asc Ao 4.5 cm RA Vol index 6 ml/m2 LA 4.5 cm RA area 10 cm? ?? RV Max 4C (d) 3.0 cm Diastology: Mitral Tissue Doppler Pulmonary veins E Peak 1.0 m/s e', Septum 0.07 m/s Pulm s 53.4 cm/s A Peak 0.8 m/s e', Lateral 0.10 m/s Pulm d 38.0 cm/s E/A 1.2 E/e' Average 12.02 Pulm s/d rati o 1.41 DT 236 msec IVRT 88 msec Aortic Valve: Vmax 2.0 m/s FLACO (V) 3.17 cm? ?? AI P 1/2 517 msec VTI 0.40 m FLACO (I) 3.03 cm? ?? LVOT V max 1.4 m/s Max PG 17 mmHg LVOT VTI 0.26 m Mean PG 10 mmHg SV 120 ml Dim Index 0.65 SV index 44 ml/m? ?? CO 9.5 l/min AV Ejection Time 0.28 sec CI 3.4 l/min/m ? ?? AV Flow Rate 502 ml/s Mitral Valve: MVA 3.2 cm? ?? MV P 1/2 68 msec Tricuspid Valve and estimated PA pressur es: TR Vmax 2.4 m/s TAPSE 3.0 cm TR maxG 23 mmHg . This study was interpreted by an [facility] redited facility. CC: Med/Surg - IP [facility]. Final Makayla Baker MD ECHO ORD SCAN-ECHOCARDIOGRAM INTERPRETATION (03/26/2022 12:00 AM CDT) Narrative 03/26/2022 12:00 AM CDT This result has an attachment that is no t available. Ordered by an unspecified provider. Other Clinical Staff OTHER SCAN-RADIOLOGY REPORT (03/25/2022 12:00 AM CDT) Narrative This result has an attachment that is no t available. Scanner OTHER SCAN-CT INTERPRETATION (03/25/2022 12:00 AM CDT) Narrative This result has an attachment that is no t available. 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 WC WORKERS [id number] 2017-Prese [phone] [address] [place] [address] [employer] OF [id number] 2021-Prese [address] [address] [place] [address] Evita Bermeo Workers Comp Self 1970 [address] (Home) [place] [address] BMI [employer] 01/19/[address] (Work) [place] [address] [employer] 06/09/[address] [facility] [employer] [address] [place] ([place]) [place] [id number] [employer] 06/09/2000 [address] [employer] (Home) [place] [address] Advance Directives Latest Code Status on File Code Status Date Activated Date Inactivated Comments Full Code 03/28/2022 8:18 AM 03/28/2022 8:49 PM Code Status Discussion: Reviewed Preferences Full Code 03/27/2022 5:19 PM 03/28/2022 8:18 AM Code Status Discussion: Unable to Assess Preferences, Provid er to review later Care Teams 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
--- OUTSIDE RECORDS SUMMARY | 2022-04-22 18:27 | XMS_ITS | Encounter Summary ---
:1970 Author Organization [facility] Address [address] [place] [address] Care Team Providers Name Role Phone Unavailable Primary Care Provider Unavailable Encounter Details Date Type Department Care Team Description 04/18/2021 Admin Visit Department of Family Medicine, [address] [address] [facility] [phone] Social History Tobacco Use Types Packs/Day Years Used Date Smoking Tobacco: Never Assessed Sex Assigned at Date Recorded Not on file documented as of 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 Plan of Treatment Not on filedocumented as of 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 Visit Diagnoses Not on filedocumented in 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 Additional Health Concerns Infection Onset Date Last Indicated Resolved Time COVID19 Pending 04/18/2021 04/18/2021 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
--- OUTSIDE RECORDS SUMMARY | 2022-04-22 18:27 | XMS_ITS | Encounter Summary ---
:1970 Author Organization [facility] Address [address] [place] [address] Care Team Providers Name Role Phone Unavailable Primary Care Provider Unavailable Encounter Details Date Type Department Care Team Description 02/03/2017 Hospital Encounter HX [facility] OCCUP MED García Sellers M.D. [address], [place] [address] (Wo rk) Social History Tobacco Use Types Packs/Day Years Used Date Smoking Tobacco: Never Assessed Sex Assigned at Date Recorded Not on file documented as of 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 Plan of Treatment Not on filedocumented as of 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 Visit Diagnoses Not on filedocumented in 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
--- OUTSIDE RECORDS SUMMARY | 2022-04-22 18:27 | XMS_ITS | Encounter Summary ---
:1970 Author Organization [facility] Address [address] [place] [address] Care Team Providers Name Role Phone Unavailable Primary Care Provider Unavailable Reason for Visit Reason Onset Date Comments Testing For Upper Respiratory Virus Symptoms 04/18/2021 Encounter Details Date Type Department Care Team Description 04/18/2021 External Outreach Department of Family Souleymanestanislaw Rj Contact With And (Suspected) Exposure To COVID-19; MedicineSachin D.O. Infection Upper Respiratory [facility], in [address] [place], [place] [address] [facility] [address] [place], [place] [phone] [address] (Work) [phone] Social History Tobacco Use Types Packs/Day Years Used Date Smoking Tobacco: Never Assessed Sex Assigned at Date Recorded Not on file documented as of 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 Progress Notes Shanita Funez - 04/18/2021 1:27 PM CST Encounter created for symptomatic infectious disease screening with possible COVID, Influenza, RSV, and/or Group A Strep testing. [employer] documented in 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 Miscellaneous Notes Result Encounter Note - Suha Tovar R.N. - 04/19/2021 8:47 AM [employer] The patient will be contacted if they are eligible for Monoclonal Antibody Infusion (MASS 1 or greater) and/or Remote Patient Monitoring (MASS 3 or greater). The [place] [facility] Team ([facility]) sends general guidance about COVID-19 to all patients by letter or portal, except when a patient is hospitalized or resides in a detention. [facility] will call all adult patients at highest risk for severe complications of COVID-19 (MASS 3 or greater), those without an online services account, and those who require an planetarium technician. Any patient with a MASS score 1 [...] for symptom management. For questions, contact the [place] [facility] Team ([facility]): Pager: [phone] In basket: P [facility] COVID-19 POSITIVE Covid Care e-consult Components of [...] to obtain the result by calling the [facility] result line or by checking the online services account. [employer] documented in 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 Plan of Treatment Not on filedocumented as of 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 Procedures Procedure Name Priority Date/Time Associated Diagnosis Comme nts INFLUENZA A/B AND Routine 04/18/2021 2:00 PM Infection Upper R esults for this RSV, PCR, VARIES [employer] Respiratory procedure a re in the results section. SARS CORONAVIRUS-2 Routine 04/18/2021 2:00 PM Contact With And Results for this RNA, V [employer] (Suspected) Exposure procedu re are in To COVID-19 the results section. documented in 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 Results Influenza A/B and RSV, PCR, Varies (04/18/2021 2:00 PM [employer]) [facility] Method Time Signature Influenza A/B Swab, 04/19/2021 DTL and RSV, Nasopharynx 3:24 PM [employer] Source Influenza A, Undetected Undetected 04/19/2021 DTL PCR 3:24 PM [employer] Comment: Influenza A RNA absent. Influenza B, PCR Undetected Undetected 04/19/2021 3:24 PM CS T DTL Comment: Influenza B RNA absent. Respiratory Syncytial Virus, PCR Undetected Undetected 04/2021 3:24 PM [employer] DTL Comment: RSV RNA absent. ----ADDITIONAL INFORMATION---- This test has been modified from the man ufacturer's instructions. Its performance characteristics were determi alecia by [facility] in a manner consistent with CLIA requirements. This test has not been cleared or approved by the U.S. Food and Drug Administration . Specimen Anatomical Collection Method Collection Time Receive d Time (Source) Location / / Volume Laterality Varies 04/18/2021 2:00 PM 7:40 (Nasopharynx) [employer] AM [employer] Rj Perdomo D.O. LAB MICROBIOLOGY - GENERAL O RDERABLES Performing Organization Address City/State/ZIP Code Phon e Number [facility] - [address] [place], [place] [address] [facility] [place] [address] Laboratories-[employer] [facility] [address] (ABNORMAL) SARS Coronavirus-2 RNA, V Symptomatic (04/18/2021 2:00 PM [employer]) [facility] Method Time Signature SARS-CoV-2 Swab, 04/19/2021 MKTO Specimen Nasopharynx 3:10 AM [employer] Source SARS CoV-2 Detected (A) Undetected 04/19/2021 MKTO RNA, TMA 3:10 AM [employer] Comment: SARS-CoV-2 RNA present. ----ADDITIONAL INFORMATION---- This molecular amplification test was pe rformed using the Aptima SARS-CoV-2 assay ([employer] on the Mom[employer].mes tem under emergency use authorization (EUA) by the U.S. Food and Drug Administ ration. Fact sheets for this EUA assay can be fo und at the following links: For Healthcare Providers: https://www.fd a.gov/media/983184/download For Patients: https://www.fda.gov/media/ 497299/download Specimen Anatomical Collection Method Collection Time Receive d Time (Source) Location / / Volume Laterality Varies 04/18/2021 2:00 PM 7:24 (Nasopharynx) [employer] PM [employer] Rj Perdomo D.O. LAB MICROBIOLOGY - GENERAL O RDERABLES Performing Organization Address City/State/ZIP Code Phon e Number [facility]- [address] [place] [address] [place] [address] System in [place] [address] [place] [address] documented in 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 Visit Diagnoses Diagnosis Contact With And (Suspected) Exposure To COVID-19 Infection Upper Respiratory documented in 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 Additional Health Concerns Infection Onset Date Last Indicated Resolved Time COVID19 Pending 04/18/2021 04/18/2021 04/19/2021 3:11 AM [employer] documented as of 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
--- OUTSIDE RECORDS SUMMARY | 2022-04-22 18:27 | XMS_ITS | Encounter Summary ---
:1970 Author Organization [facility] Address [address] [place] [address] Care Team Providers Name Role Phone Unavailable Primary Care Provider Unavailable Reason for Visit Reason Comments COVJOSE G Nurse Line Encounter Details Date Type Department Care Team Description 04/18/2021 Clinical Communication Division of Amanda Kennedy COVI D Nurse [facility] [phone] [place], [place] (Work) [place], [place] [address] [place] [address] Social History Tobacco Use Types Packs/Day Years [...] RSV and Strep Select appropriate region: : [place] Do you have any of the following [...] swabbed for COVID-19 and Influenza, sent to [facility] located at [address] [place] [address] ([facility]). An appointment is required for testing, please call [phone] Friday-Friday 7am to 6pm and Friday & [...] frequently with soap and water, use hand campus rep if soap and water aren't available. -Wear [...] care: Yes The following references were used: [facility] novel coronavirus (COVID- 19) resources Nursing judgement E LEARNING COORDINATOR documented in 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 Plan of Treatment Not on filedocumented as of 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 Visit Diagnoses Not on filedocumented in 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
== END 2022-03-27 11:20 | disposition home or self-care (01) ==
LOC: AMB 04-22 18:25
PROVIDERS: PCP Family Medicine; Visit Provider Emergency Medicine Emergency Medical Services
DX: I50.1 Left ventricular failure, unspecified (principal); R77.8 Other specified abnormalities of plasma proteins; I10 Essential (primary) hypertension
CPT/HCPCS: A0425; A0426